=== PATIENT | male | born 1945 | race Caucasian/White ===

== ENCOUNTER → 2017-02-14 | Outpatient (CLI) | payer OTHER ==
[~2017-02-14] MED LIST: ASPCH81X PO; DOCU100C31 PO; GABA-113 PO; IBUP1CAP9 PO; MXZC25 PO; OMEP20TA PO; POLY335040 PO; ROSU5TAB PO; TRAM-453 PO
--- NOTE | 2017-02-14 15:32 | DIAGNOSTIC IMAGING REPORT ---
BONE SCAN WHOLE BODY CLINICAL HISTORY: Prostate carcinoma COMPARISON STUDY: None FINDINGS: The patient was injected with 27.1 mCi of technetium 99m MDP. Three-hour delayed whole body images were acquired. There are foci of increased activity shoulders wrists knees and feet and a degenerative/arthritic pattern. Foci of increased activity over the perineum are felt to relate to bladder and associated urinary contamination. There are no foci of increased activity viewed as suspicious for skeletal metastasis. IMPRESSION: No scintigraphic evidence of skeletal metastasis. Electronically signed by: Victorino Giang M.D. 02/14/2017 3:31 PM Dictated Date/Time: 02/14/2017 3:29 PM
== END | disposition home or self-care (01) ==
LOC: C.NUCL 11:30
PROVIDERS: ATTEND Specialist
DX: D07.5 Carcinoma in situ of prostate (principal)

== ENCOUNTER 2018-12-20 09:15 | Inpatient (IN) ==
--- NOTE | 2018-12-13 10:41 | Anesthesiology Consultation ---
Date of Service December 13, 2018 Assessment & Plan (1) Encounter for pre-operative examination: Patient seeing [facility] [place] 12/13 @ 1530. Chart Review Chart Review: Acceptable Risk for Surgery (pending cardiology office visit ) and Patient NOT seen in Pre Admission Testing History Surgery Operation Date: 12/20/18 11:10 Proposed Procedures p Navigational Bronchoscopy with ICG Marking, - Jean Paul Diego MD, FACS s Robotic Left Video Assisted Thoracoscopy with Left Lower Wedge Resection - Jean Paul Diego MD, FACS Height/Weight Height: 5 ft 9 in Weight: 102.058 kg Allergies Allergy/AdvReac Type Severity Reaction Status Date / Time Sulfa (Sulfonamide AdvReac Mild INCREASES Verified 12/13/18 15:27 Antibiotics) BODY TEMPERATURE Medications Home Medications Medication Instructions Recorded Confirmed Last Taken cholecalciferol (vitamin D3) 1,000 unit PO QAM 12/28/17 12/13/18 11/11/18 20:00 [Vitamin D3] docusate sodium 100 mg PO HS 12/28/17 12/13/18 Unknown multivitamin with minerals 1 cap PO BID 12/28/17 12/13/18 11/11/18 20:00 omega 8-nbd-cor-fish oil [Fish Oil] 2,000 mg PO QAM 12/28/17 12/13/18 11/11/18 20:00 acetaminophen [Tylenol Extra 1,000 mg PO Q8H PRN 09/04/18 12/13/18 11/10/18 Strength] vitamin B complex 1 tab PO QAM 09/04/18 12/13/18 11/11/18 20:00 vitamin N66-[id number] acid 1 tab PO QAM 09/04/18 12/13/18 11/11/18 20:00 Eliquis 5 mg PO BID 11/13/18 12/13/18 11/12/18 21:00 ranolazine [Ranexa] 500 mg PO QAM 11/13/18 12/13/18 11/12/18 09:00 ascorbic acid (vitamin C) See Rx Instructions .ROUTE .COMPLEX 12/13/18 12/13/18 Unknown biotin See Rx Instructions .ROUTE .COMPLEX 12/13/18 12/13/18 Unknown rosuvastatin 40 mg tablet 20 mg PO DAILY tab 12/13/18 12/13/18 Unknown Past Medical History Medical History High cholesterol Prostate cancer radiation and chemo Anxiety Bradycardia has had for a few years and follow with DR. Price from [facility] Depression Hearing deficit Hx pulmonary embolism 08/2018 and takes eliquis Metastatic bone cancer T3 AREA Osteoarthritis Stable angina On Ranexa. Per PCP 10/25/18, "CAD nonobstructive with angina and dyspnea." Seeing [facility] 12/13. Past Family History Family History Other No pertinent family history Past Surgical History Surgical History History of cardiac catheterization about 5 years ago and no stent History of colonoscopy History of right knee joint replacement Hx of prostatectomy and lymph nodes removed S/P bronchoscopy with biopsy (11/14/18) Dr. Diego 11-14-18 Past Anesthesia History EBUS 11/14/18 = MAC 3.0, ETT 8.0 grade view III, atraumatic. Smooth induction. Social History Smoking Status: Never smoker Do You Dip or Chew Tobacco: No Hx Alcohol Use: No Hx Substance Use: No substance use type: does not use Testing Laboratory Results 12/05/18 WBC: 6.15 H/H: 13.7/39.7 PLATELETS: 215 SODIUM: 143 POTASSIUM: 4.1 CHLORIDE: 109 CO2: 29 BUN: 18 CREATININE: 0.97 GLUCOSE: 84 Electrocardiogram Date: 09/05/18 Findings: + SB @ (49 with 1st degree AV block) Compared with EKG of 12/29/2017, minimal criteria for anterior infarct are no longer present. Chest X-Ray Date: 11/14/18 HISTORY: Postop. s/p EBUS IMPRESSION: 1. No pneumothorax. 2. Scattered linear densities within the mid to lower lung zones. This favors subsegmental atelectasis. Echocardiogram Date: 10/05/18 EF: 60-65% Normal LV size and systolic function. No regional wall motion normalities. Mild concentric LVH. Mild mitral regurgitation. Normal estimated RVSP, assuming a normal right atrial pressure (IVC not well-visualized). Other Testing PET CT fusion skull to thigh 11/13/18 FINDINGS: HEAD AND NECK: Right greater than left increased metabolic uptake noted about the parotid glands and submandibular glands, likely physiologic without correlate on the CT images. No hypermetabolic adenopathy. CHEST: There is a physiologic distribution of activity, with no hypermetabolic mediastinal, hilar or pulmonary foci. 5 mm solid nodule of the superior segment left lower lobe has decreased in size from 09/04/2018 where it measured 10 mm. There is no hypermetabolic activity noted within this nodule. Mild right infrahilar soft tissue prominence with proximal right lower lobe bronchial wall thickening redemonstrated without hypermetabolic activity, possibly on a postinflammatory basis. ABDOMEN AND PELVIS: There is a physiologic distribution of activity within the liver, spleen, adrenal glands, gastrointestinal and urinary tracts, with no hypermetabolic foci. MUSCULOSKELETAL SYSTEM AND EXTREMITIES: Sclerotic lesion of the T3 vertebral body extending into the right T3 pedicle is noted with only slightly increased metabolic activity, SUV max of 2.2. ADDITIONAL CT FINDINGS: Mild cardiomegaly. Coronary arterial calcifications are noted. No pneumothorax or pleural effusion. Liver, gallbladder, spleen, pancreas and adrenal glands appear unremarkable. No renal or ureteral calculi. Wall thickening of the urinary bladder with partial distention. Moderate right and large left fat filled inguinal hernias. Prior prostatectomy. Extensive calcified plaque of the abdominal aorta. Post operative changes from prior right inguinal and bilateral iliac chain dissection. Small hiatal hernia. No bowel obstruction or bowel wall thickening. Soft tissues are unremarkable. IMPRESSION: 1. 5 mm solid nodule of the superior segment left lower lobe has decreased in size from 09/04/2018 previously measuring 10 mm. No significant metabolic activity identified within this nodule. These findings are suggestive of a p robable benign etiology. Follow-up recommended. 2. No hypermetabolic pulmonary nodules or adenopathy identified. 3. Mild right infrahilar soft tissue prominence with right lower lobe bronchial wall thickening as described on CTA chest of same day again noted without hypermetabolic activity, possibly on a postinflammatory basis. 4. Sclerotic lesion at T3 demonstrates only slightly increased metabolic activity. No additional hypermetabolic bone lesions.
[~2018-12-20 09:15] MED LIST changes: -ASPCH81X PO; -DOCU100C31 PO; -GABA-113 PO; -IBUP1CAP9 PO; +LR 15ML/HR IV SCH; -MXZC25 PO; -OMEP20TA PO; -POLY335040 PO; -ROSU5TAB PO; -TRAM-453 PO
[2018-12-20] MEDS ORDERED: ATROPINE SULFATE 0.1 MG/ML 10ML SYR IV PRN (10:35)
[2018-12-20] MEDS ORDERED: fentaNYL citrate 100 MCG/2 ML VIAL IV PRN (10:35)
[2018-12-20] MEDS ORDERED: HYDROmorphone INJ 1 MG/ML SYRINGE IV PRN (10:35)
[2018-12-20] MEDS ORDERED: ONDANSETRON INJ 2 MG/ML 2 ML VIAL IV PRN ×2 (10:35→17:26)
[2018-12-20] MEDS ORDERED: ePHEDrine sulfate 50 MG/ML AMP IV PRN (10:35)
[2018-12-20] MEDS ORDERED: fentaNYL citrate 100 MCG/2 ML VIAL ONE ×2 (11:05→15:53)
[2018-12-20] MEDS ORDERED: MIDAZOLAM HCL 1 MG/ML 2ML VIAL ONE (11:05)
--- NOTE | 2018-12-20 11:38 | History & Physical Bridge Note ---
Date of Service December 20, 2018 History & Physical Bridge Note I have examined the patient, reviewed the History & Physical and in the interval since the performance of the History & Physical I have noted the following changes of clinical significance: no changes noted
[2018-12-20] MEDS ORDERED: SODIUM CHLORIDE 0.9% PF 50 ML VIAL ONE (11:45)
[2018-12-20] MEDS ORDERED: BUPIVACAINE 0.5 % 5 MG/1 ML MPF 30ML VIAL ONE (11:45)
[2018-12-20] MEDS ORDERED: BUPIVACAINE LIPOSOME 1.3% 266 MG/20 ML VIAL ONE (11:46)
[2018-12-20] MEDS ORDERED: CLINDAMYCIN PHOS 300 MG/2 ML VIAL ONE (12:45)
[2018-12-20] MEDS ORDERED: GLYCOPYRROLATE 0.2 MG/ML VIAL ONE ×2 (12:47→16:10)
[2018-12-20] MEDS ORDERED: NEOSTIGMINE METHYLSULFATE 5 MG/5 ML SYR ONE (12:47)
[2018-12-20] MEDS ORDERED: DEXAMETHASONE SOD INJ 4 MG/ML VIAL ONE (12:47)
[2018-12-20] MEDS ORDERED: PROPOFOL IV EMULSION 10 MG/ML 20 ML VIAL IV ONE ×2 (12:47→15:03)
[2018-12-20] MEDS ORDERED: ONDANSETRON INJ 2 MG/ML 2 ML VIAL ONE (12:47)
[2018-12-20] MEDS ORDERED: ROCURONIUM BROMIDE 10 MG/ML 5 ML VIAL ONE ×3 (12:48→13:30)
--- NOTE | 2018-12-20 13:21 | Fluoroscopy Report ---
FL chest 1V frontal CLINICAL HISTORY: 73 years-old Male presenting with ILSA BRONCH WITH ICG MARKING. TECHNIQUE: 1 fluoroscopic image(s) recorded as part of an intraoperative procedure. COMPARISON: CTA chest from 11/13/2018. FINDINGS/IMPRESSION: Bronchoscopy catheter extends to the periphery of the lung. Please see surgical report for further details. Fluoroscopy dosage (mGy): 4.22. Fluoroscopy time: 29.2 seconds. Number or time of high level fluoroscopy (HLF), digital spot, or digital subtraction images: 0. Electronically signed by: Suhail Curtis M.D. 12/20/2018 1:20 PM
[2018-12-20] MEDS ORDERED: ePHEDrine sulfate 50 MG/ML SYR ONE (13:30)
[2018-12-20] MEDS ORDERED: OXYCODONE HCL IR 5 MG TAB (IMMEDIATE RELEASE) PO PRN (15:10)
[2018-12-20] MEDS ORDERED: METOCLOPRAMIDE HCL INJ 5 MG/ML 2 ML VIAL IV ONE (15:20)
--- NOTE | 2018-12-20 15:35 | Anesthesiology Progress Note ---
Date of Service December 20, 2018 Anesthesia Post Procedure Vital Signs Vital Signs: Temp Pulse Resp BP Pulse Ox 12/20/18 10:09 36.6 C 55 L 20 159/81 H 99 Pain Intensity Other: Pain Intensity: 4 Transfer of Care Handoff Completed per policy Notes Mental Status: alert / awake / arousable and participated in evaluation Patient Amnestic to Procedure: Yes Nausea / Vomiting: adequately controlled Pain: adequately controlled Airway Patency, RR, SpO2: stable & adequate BP & HR: stable & adequate Hydration State: stable & adequate Anesthetic Complications: no major complications apparent and Pt Satisfied with anesthetic care
[2018-12-20] MEDS: ACETAMINOPHEN 1,000 MG/100 ML VIAL IV SCH ×2 (15:54→23:24)
--- NOTE | 2018-12-20 15:59 | XRay Report ---
XR chest 1V portable HISTORY: 73 years-old Male LLL Wedge status post surgery of the left lung COMPARISON: Chest radiograph 11/14/2018 TECHNIQUE: Portable AP view of the chest FINDINGS: Cardiac silhouette is enlarged, unchanged. Interval postoperative changes of the left lung with surgi trent suture material seen about the left perihilar distribution. A left-sided chest tube is noted with distal tip terminating adjacent to the left hilum. Small left apical pneumothorax with pleural separ ation of 1.8 cm. Persistent bibasilar right greater than left opacities are noted without large pleur al effusion or overt pulmonary edema. Subcutaneous emphysema about the lower lateral left chest wall. Degenerative changes of the shoulders and spine. IMPRESSION: 1. Postoperative changes of the left lung with small left apical pneumothorax. 2. Persistent right greater than left bibasilar opacities suggestive of probable atelectasis. 3. Cardiomegaly without overt pulmonary edema. The above report was generated using voice recognition software. It may contain grammatical, syntax o r spelling errors. Electronically signed by: Jacinto Estevez M.D. 12/20/2018 3:57 PM
[2018-12-20] MEDS ORDERED: GLYCOPYRROLATE 0.2 MG/ML VIAL IV STA (16:09)
--- NOTE | 2018-12-20 16:26 | Anesthesiology Progress Note ---
Date of Service December 20, 2018 Physical Exam Vital Signs: Last Vital Signs Temp 36.0 C L 12/20/18 15:22 Pulse 70 12/20/18 15:50 Resp 23 12/20/18 15:50 BP 107/64 12/20/18 15:50 Pulse Ox 90 12/20/18 15:50 Physical Exam: The patient developed and 2nd degree AV block,Mobitz 2 in the PACU. Cain Ramirez was notified, the transfer orders were changed to a [place] bed, an EKG was ordered and he was given 0.4 mg of glycopyrrolate. Mr. Ramirez ordered a cardiology consult. Results & Data Medications Administered Lactated Ringer's (Lr) 1,000 mls @ 15 mls/hr IV .Q24H KAYLA Stop: 12/21/18 05:59 Last Infusion: 12/20/18 12:12 Dose: 0 mls/hr Documented by: [id number] Admin: 12/20/18 10:46 Dose: 15 mls/hr Documented by: [id number] Acetaminophen (Ofirmev) 1,000 mg in 100 mls @ 400 mls/hr IV Q8H KAYLA Stop: 01/19/19 15:14 Last Admin: 12/20/18 15:54 Dose: 400 mls/hr Documented by: [id number]
--- NOTE | 2018-12-20 17:04 | Cardiology Progress Note ---
Date of Service December 20, 2018 Assessment & Plan (1) Sinus node dysfunction: He has a history of sinus bradycardia although we have not done of a lot of testing in our office as his evaluation has been elsewhere in the past. I suspect what we are seeing here is his no sinus node dysfunction. Agree with keeping him on the monitor and observing for significant bradycardia. At the moment I would not do anything further but I would avoid negative chronotrops. (2) CAD (coronary artery disease): He may have small vessel disease, he has not been shown to have significant large vessel disease with catheterizations in the past and recent stress testing. I would however continue Ranexa and statin therapy. (3) Anticoagulant long-term use: He was on Eliquis as an outpatient, that is for pulmonary emboli. As far as I know he does not have atrial fibrillation. I would restart it when safe. Subjective He is awake in the recovery room, he is feeling well and not having much discomfort. No palpitations. Physical Exam Physical Exam: Constitutional: Alert, cooperative and in no distress. Pulmonary: Clear to auscultation bilaterally. Cardiac: Regular rhythm with no murmur, gallop or rub. Abdomen: Soft, nontender with normal bowel sounds. Extremities: No edema. Skin: No rash, ecchymoses or petechiae. Results & Data Vital Signs (Past 12 Hours) Vital Signs Temp Pulse Pulse Resp BP Pulse Ox 12/20/18 16:55 77 14 112/55 L 93 12/20/18 16:40 82 15 128/66 93 12/20/18 16:30 36.3 C L 90 13 112/66 93 12/20/18 16:20 101 H 16 112/64 93 12/20/18 16:10 67 12 124/57 L 94 12/20/18 16:00 76 20 120/80 93 12/20/18 15:50 70 23 107/64 90 12/20/18 15:40 71 22 114/69 97 12/20/18 15:30 75 13 98/58 L 97 12/20/18 15:22 36.0 C L 81 21 124/53 L 94 12/20/18 10:09 36.6 C 55 L 20 159/81 H 99 Diagnostic Findings Electrocardiography: Sinus rhythm, premature atrial beats, no significant abnormality. Telemetry: Sinus rhythm with periods of sudden sinus bradycardia consistent with sinus node dysfunction. No clear AV block documented. PG Care Time/CCT Total # of Minutes Spent Total Time Spent with Patient: Total time spent is greater than 50% in coordination of care (as documented) at patient's floor/unit and/or counseling patient:
[2018-12-20] MEDS ORDERED: MoRPHine SULFATE 2 MG/ML CARP IV PRN (17:26)
[2018-12-20] MEDS: D5W AND 1/2NSS 1,000 ML IV SCH (17:42)
[2018-12-20] MEDS: DOCUSATE SODIUM 100 MG CAP PO SCH (20:42)
--- NOTE | 2018-12-20 22:32 | Operative Report ---
DATE OF OPERATION: 12/20/2018 PREOPERATIVE DIAGNOSES: 1. A nodule in the superior segment, left lower lobe. 2. History of metastatic prostate carcinoma. POSTOPERATIVE DIAGNOSIS: Apparent nodule of left lower lobe, primary unknown. PROCEDURE: 1. Electromagnetic navigational bronchoscopy with marking of lesion with indocyanine green dye. 2. Robot-assisted left thoracoscopy with wedge resection of mass. SURGEON: Jean Paul Diego MD. SLASH TRIMMER: REGINE Felder (Mr. Oh was present for the entire case and was at the patient's bedside while I was at the console. He stayed for the entirety and was the virtual assistant for advertisers. ANESTHESIA: General anesthesia, endotracheal intubation using double lumen tube. SPECIFICS OF PROCEDURE AND FINDINGS: Issac Mercer is a 73-year-old male with apparent metastatic prostate carcinoma who is followed by Dr. Jude Whitman. Dr. Whitman presented this case in one of our conferences that the patient had a nodule in the left lower lobe in the superior segment. It had enlarged to about 10 mm and after much discussion, we felt that it would be worthwhile to wedge this out. He got a shot of Lupron for his prostate cancer and the nodule got a bit smaller. After much discussion, we elected to proceed. I had a very lengthy discussion with the patient and his significant other in the office. On 12/20/2018, the patient underwent an uncomplicated electromagnetic navigational bronchoscopy. I then injected the indocyanine green dye. We then turned the patient and the dye was not very helpful, but we did a few wedges of the superior segment of the lower lobe and frozen section showed this to be a small foci of carcinoma with mucinous features. The patient tolerated the procedure well, had no air leak and negligible blood loss. DESCRIPTION OF PROCEDURE: The patient was brought to the operating room, laid in supine position. General anesthesia was induced and endotracheal intubation was performed with a single lumen tube. After appropriate timeout had been called and prophylactic antibiotics given, the fiberoptic bronchoscope was placed and I saw no endobronchial lesions going all the way down to the tertiary bronchi bilaterally Coming back to the trachea, we then registered all the airways on the superDimension navigational bronchoscopy system. I then went down into the left lower lobe and was able to get out to this lesion. We really did not see much with the endobronchial ultrasound probe. This was a small mass and I was not surprised. I injected the indocyanine green dye and I was a bit surprised as there was difficulty in injecting it. I could inject it, but it did not appear that the dye was injecting the way it should have. At any rate, we then removed this and we had no evidence of bleeding. We then removed our fiberoptic bronchoscope. The patient tolerated this well and was ready for his surgery. The patient had double lumen tube placed and he was placed in a right lateral decubitus position. Left chest prepped and draped in the usual sterile fashion. We called another time-out and then I placed an 8 mm port close to the midline at about the 8th interspace. I inserted the scope and we could see there were no adhesions. Carbon dioxide was then insufflated. Another 8 mm port was placed anteriorly and laterally and then a 12 mm assistance port was placed above the costal margin anteriorly. I then went in and I did not see the indocyanine green dye as I had hoped. As stated, I think there may have been a problem with the injection. For this reason, I did a generous biopsy of the edge of the fissure of the lower lobe going up to the superior segment. The first specimen did not have a mass, but I did a second and it did have a nodule and frozen section showed this to be an adenocarcinoma. A 266 mg of Exparel in 20 mL of solution was mixed with 30 mL of 0.5% bupivacaine and 250 mL of normal saline. I then injected each of the 4 port sites before making them and we then did a block from the 2nd rib to the 12th rib. This was done under thoracoscopic guidance. A 24-[place] chest tube was placed in the middle port and directed upward. It was held in place with heavy silk suture. A 4-0 Monocryl was used to close all the incisions and the assistance port had a 0 Vicryl to close the muscle layers first. He tolerated it well, was extubated in the room. He really did not have an air leak. I attest to the content of the Intraoperative Record and any orders documented therein. Any exception s are noted below.
[2018-12-21] MEDS: D5W AND 1/2NSS 1,000 ML IV SCH (04:10)
[2018-12-21 06:22] LABS: Hematocrit (blood only) 35.1 % (42-52); Mean Corpuscular Hemoglobin 31.9 pg (25-34); Mean Corpuscular Hgb Conc 34.2 g/dL (32-36); Mean Corpuscular Volume 93.4 fL (80-100); Mean Platelet Volume 9.3 fL (7.4-10.4); Platelet Count 188 K/uL (130-400); RDW Coefficient of Variation 13.3 % (11.5-14.5); RDW Standard Deviation 44.9 fL (36.4-46.3); Red Blood Count 3.76 M/uL (4.7-6.1); White Blood Count 7.38 K/uL (4.8-10.8)
[2018-12-21 06:32] LABS: Partial Thromboplastin Ratio 0.8; Partial Thromboplastin Time 22.5 Seconds (21.0-31.0); Prothrombin Time 10.5 Seconds (9.0-12.0)
[2018-12-21 06:52] LABS: Creatinine Clr Calc Pharmacy 83.4 ml/min; Est GFR (African American) 95.3; Est GFR (Non-African American) 82.2
--- NOTE | 2018-12-21 07:05 | XRay Report ---
XR chest 1V portable CLINICAL HISTORY: LLL Wedge postoperative COMPARISON STUDY: 12/20/2018 FINDINGS: Minimal residual left apical pneumothorax. This is improved from the prior study. Left basilar chest tube is unaltered. Infiltrative/atelectatic change right base is unaltered. IMPRESSION: Stable to slightly improved exam. Minimal, if any residual left apical pneumothorax. The above report was generated using voice recognition software. It may contain grammatical, syntax or spelling errors. Electronically signed by: Armando Stewart M.D. 12/21/2018 7:04 AM
--- NOTE | 2018-12-21 07:54 | XRay Report ---
XR chest 1V portable CLINICAL HISTORY: tube removal tube position COMPARISON STUDY: 12/21/2018 FINDINGS: Interval removal left-sided chest tube. Parenchymal densities right lung base are stable. No evidence for pneumothorax. IMPRESSION: Interval removal left-sided chest tube. No significant postprocedural pneumothorax. The above report was generated using voice recognition software. It may contain grammatical, syntax or spelling errors. Electronically signed by: Armando Stewart M.D. 12/21/2018 7:52 AM
[2018-12-21] MEDS ORDERED: ACETAMINOPHEN 325 MG TAB PO SCH (08:00)
[2018-12-21] MEDS: DOCUSATE SODIUM 100 MG CAP PO SCH (08:08)
--- NOTE | 2018-12-21 08:27 | Anesthesiology Progress Note ---
Date of Service December 21, 2018 Anesthesia Post Procedure Vital Signs Vital Signs: Temp Pulse Pulse Pulse Resp BP BP 12/21/18 07:46 36.8 C 71 20 114/61 12/21/18 04:14 36.6 C 72 18 119/56 L 12/21/18 02:17 36.8 C 62 16 101/54 L 12/21/18 00:26 36.7 C 69 16 109/52 L 12/20/18 23:15 36.6 C 69 18 112/55 L 12/20/18 22:26 36.6 C 74 18 103/49 L 12/20/18 21:30 12/20/18 20:26 36.6 C 92 H 18 115/61 12/20/18 19:56 36.5 C 12/20/18 19:50 91 H 12/20/18 19:17 35.2 C L 88 16 120/67 12/20/18 18:26 36.4 C L 85 18 91/55 L 12/20/18 18:00 35.7 C L 12/20/18 17:15 35.7 C L 86 18 123/68 12/20/18 17:10 84 15 120/61 12/20/18 16:55 77 14 112/55 L 12/20/18 16:40 82 15 128/66 12/20/18 16:30 36.3 C L 90 13 112/66 12/20/18 16:20 101 H 16 112/64 12/20/18 16:10 67 12 124/57 L 12/20/18 16:00 76 20 120/80 12/20/18 15:50 70 23 107/64 12/20/18 15:40 71 22 114/69 12/20/18 15:30 75 13 98/58 L 12/20/18 15:22 36.0 C L 81 21 124/53 L 12/20/18 10:09 36.6 C 55 L 20 159/81 H Pulse Ox 12/21/18 07:46 94 12/21/18 04:14 93 12/21/18 02:17 92 12/21/18 00:26 93 12/20/18 23:15 92 12/20/18 22:26 92 12/20/18 21:30 96 12/20/18 20:26 92 12/20/18 19:56 12/20/18 19:50 12/20/18 19:17 93 12/20/18 18:26 95 12/20/18 18:00 12/20/18 17:15 98 12/20/18 17:10 93 12/20/18 16:55 93 12/20/18 16:40 93 12/20/18 16:30 93 12/20/18 16:20 93 12/20/18 16:10 94 12/20/18 16:00 93 12/20/18 15:50 90 12/20/18 15:40 97 12/20/18 15:30 97 12/20/18 15:22 94 12/20/18 10:09 99 Pain Intensity Other: Pain Intensity: 4 Left Chest: Pain Intensity: 3 Notes Mental Status: alert / awake / arousable and participated in evaluation Nausea / Vomiting: adequately controlled Pain: adequately controlled Airway Patency, RR, SpO2: stable & adequate BP & HR: stable & adequate Hydration State: stable & adequate
[2018-12-21] MEDS: ACETAMINOPHEN 1,000 MG/100 ML VIAL IV SCH (08:43)
[2018-12-21] MEDS ORDERED: ENOXAPARIN INJ 40 MG/0.4 ML SYR SQ SCH (09:00)
[2018-12-21] MEDS ORDERED: RANOLAZINE 500 MG ER TAB PO SCH (09:00)
[2018-12-21] MEDS ORDERED: ROSUVASTATIN CALCIUM 20 MG TAB PO SCH (09:00)
--- NOTE | 2018-12-22 01:14 | Discharge Summary ---
ADMISSION DIAGNOSIS: Left lung nodule. DISCHARGE DIAGNOSIS: Left lung nodule. HOSPITAL COURSE: This is a very pleasant 73-year-old male who was seen and evaluated by Dr. Diego secondary to a left lower lobe superior segment lung nodule. Because the patient had a history of metastatic prostate cancer, wedge resection of this nodule was felt to be indicated. On date of admission, Dr. Diego took the patient to the operating room. He performed an electromagnetic navigational bronchoscopy with marking of the lesion with indocyanine dye. He then performed a robotic assisted left video-assisted thoracoscopy with a wedge resection of this lung mass. Final pathology was pending at the time of this dictation. During patient's postoperative course, he did have episodes of what appeared to be a Mobitz type 2 second-degree AV block in the recovery room. Anesthesia administered glycopyrrolate which helped improve his heart rhythm. Cardiology consultation was obtained and as the patient was not on any AV rohit blocking agents or negative chronotropes, they felt observation on telemetry was all that was needed. Following his admission, he did not have any further episodes of this arrhythmia. On postop day #1, his chest tube was discontinued and a post-pull chest x-ray did not reveal significant pneumothorax and the patient was deemed stable for discharge home, which was postoperative day #1. No changes were made to the patient's home medicine regimen and he was provided with a prescription for Ultram for pain. The patient was given written and verbal instructions and he was told he could remove his dressings in 3 days and shower thereafter, however, not take any tub baths. He was told not to drive until cleared by Dr. Diego. Dr. Diego's office will call him for a 1-week appointment. The patient was told get a chest x-ray 1 hour prior to this appointment. He was also instructed to call the office should any concerns arise.
== END 2018-12-21 10:30 | disposition home or self-care (01) | DRG 168 ==
LOC: ASU 09:15 → 2E 15:12

== ENCOUNTER 2019-02-07 06:10 | Inpatient (IN) ==
--- NOTE | 2019-02-06 08:53 | Anesthesiology Consultation ---
Date of Service February 06, 2019 Assessment & Plan (1) Encounter for pre-operative examination: Chart Review Chart Review: Acceptable Risk for Surgery History Surgery Operation Date: 02/07/19 07:30 Proposed Procedures p Left Robotic Video-Assisted Thoracoscopy with Left Lower Lobectomy, and Mediastinal Lymphadenectomy - Jean Paul Diego MD, FACS Height/Weight Height: 5 ft 9 in Weight: 102.058 kg Allergies Allergy/AdvReac Type Severity Reaction Status Date / Time Sulfa (Sulfonamide AdvReac Mild INCREASES Verified 02/01/19 13:14 Antibiotics) BODY TEMPERATURE Medications Home Medications Medication Instructions Recorded Confirmed Last Taken cholecalciferol (vitamin D3) 1,000 unit PO QAM 12/28/17 02/01/19 12/15/18 21:00 [Vitamin D3] docusate sodium 100 mg PO HS 12/28/17 02/01/19 Unknown multivitamin with minerals 1 cap PO DAILY 12/28/17 02/01/19 12/15/18 21:00 omega 3-bgs-fqi-fish oil [Fish Oil] 2,000 mg PO QAM 12/28/17 02/01/19 12/15/18 21:00 acetaminophen [Tylenol Extra 1,000 mg PO Q8H PRN 09/04/18 02/01/19 11/10/18 Strength] vitamin B complex 1 tab PO QAM 09/04/18 02/01/19 12/15/18 21:00 vitamin J29-suiqj acid 1 tab PO QAM 09/04/18 02/01/19 12/15/18 21:00 Eliquis 5 mg PO BID 11/13/18 02/01/19 12/15/18 21:00 ranolazine [Ranexa] 500 mg PO QAM 11/13/18 02/01/19 12/15/18 12:00 rosuvastatin 40 mg tablet 20 mg PO DAILY tab 12/13/18 02/01/19 Unknown tramadol [Ultram] 50 mg PO Q4H PRN #18 tab 12/21/18 02/01/19 Unknown gabapentin [Neurontin] 100 mg PO TID PRN 02/01/19 02/01/19 Unknown Past Medical History Medical History High cholesterol Prostate cancer radiation and chemo Hx pulmonary embolism (Resolved) 08/2018 and takes eliquis Anxiety Bradycardia has had for a few years and follow with DR. Price from [place] and [facility] Depression Hearing deficit Metastatic bone cancer T3 AREA Osteoarthritis Primary adenocarcinoma of lower lobe of left lung Stable angina On Ranexa. Per PCP 10/25/18, "CAD nonobstructive with angina and dyspnea." Seeing [facility] 12/13. Past Family History Family History Other No pertinent family history Past Surgical History Surgical History History of cardiac catheterization about 5 years ago and no stent History of colonoscopy History of lung biopsy (12/20/18) Wedge Resection LLL Dr. Diego History of lung surgery Robotic Left Video Assisted Thoracoscopy with left lower lobe wedge resection History of right knee joint replacement Hx of prostatectomy and lymph nodes removed S/P bronchoscopy with biopsy (11/14/18) Dr. Diego 11-14-18 Social History Smoking Status: Never smoker Do You Dip or Chew Tobacco: No Hx Alcohol Use: No Hx Substance Use: No substance use type: does not use Testing Laboratory Results Laboratory Tests 12/21/18 02/05/19 02/05/19 05:51 14:20 15:03 WBC 4.89 Hgb 13.1 L Hct 39.7 L Plt Count 218 PT 10.5 INR 1.0 APTT 22.5 Potassium 3.9 Creatinine 0.73 Electrocardiogram Date: 12/20/18 Findings: + NSR @ (90 1st degree AV block, prolonged QT, PAC's) and + NSST changes Chest X-Ray Date: 12/26/18 Findings: + atelectasis (likely mild) and + other (no pneumothorax (was a post- op CXR from prior VAT)) Stress Test Date: 12/14/18 Type: exercise (stress echo) Findings: + WNL Resting LV Function: normal Resting RWMA: + none Valvular Disease: no significant valvular disease
[2019-02-07] MEDS ORDERED: NEOSTIGMINE METHYLSULFATE 5 MG/5 ML SYR ONE (06:51)
[2019-02-07] MEDS ORDERED: GLYCOPYRROLATE 0.2 MG/ML VIAL ONE (06:51)
[2019-02-07] MEDS ORDERED: LIDOCAINE HCL 2% 2 ML VIAL/AMP(20MG/ML) INFIL ONE (06:51)
[2019-02-07] MEDS ORDERED: PHENYLEPHRINE 100MCG/ML 5ML SYR ONE (06:51)
[2019-02-07] MEDS ORDERED: ONDANSETRON INJ 2 MG/ML 2 ML VIAL ONE (06:51)
[2019-02-07] MEDS ORDERED: DEXAMETHASONE SOD INJ 4 MG/ML VIAL ONE (06:51)
[2019-02-07] MEDS ORDERED: ePHEDrine sulfate 50 MG/ML SYR ONE (06:51)
[2019-02-07] MEDS ORDERED: MIDAZOLAM HCL 1 MG/ML 2ML VIAL ONE (06:52)
[2019-02-07] MEDS ORDERED: fentaNYL citrate 100 MCG/2 ML VIAL ONE (06:52)
[2019-02-07] MEDS ORDERED: PROPOFOL IV EMULSION 10 MG/ML 20 ML VIAL IV ONE (06:52)
[2019-02-07] MEDS ORDERED: ROCURONIUM BROMIDE 10 MG/ML 5 ML VIAL ONE ×5 (06:52→11:20)
[2019-02-07] MEDS ORDERED: SODIUM CHLORIDE 0.9% PF 50 ML VIAL ONE (07:10)
[2019-02-07] MEDS ORDERED: BUPIVACAINE 0.5 % 5 MG/1 ML MPF 30ML VIAL ONE (07:10)
--- NOTE | 2019-02-07 07:10 | History & Physical Bridge Note ---
Date of Service February 07, 2019 History & Physical Bridge Note I have examined the patient, reviewed the History & Physical and in the interval since the performance of the History & Physical I have noted the following changes of clinical significance: no changes noted
[2019-02-07] MEDS ORDERED: BUPIVACAINE LIPOSOME 1.3% 266 MG/20 ML VIAL ONE (07:11)
[2019-02-07] MEDS ORDERED: fentaNYL citrate 100 MCG/2 ML VIAL IV PRN (07:26)
[2019-02-07] MEDS ORDERED: ePHEDrine sulfate 50 MG/ML AMP IV PRN (07:26)
[2019-02-07] MEDS ORDERED: METOCLOPRAMIDE HCL INJ 5 MG/ML 2 ML VIAL IV PRN (07:26)
[2019-02-07] MEDS ORDERED: HYDROmorphone INJ 2 MG/ML SYR/VIAL IV PRN (07:26)
[2019-02-07] MEDS ORDERED: ATROPINE SULFATE 0.1 MG/ML 10ML SYR IV PRN (07:26)
[2019-02-07] MEDS ORDERED: PROMETHAZINE HCL 12.5 MG in SODIUM CHLORIDE 0.9% 50 ML IV PRN (07:26)
[2019-02-07] MEDS ORDERED: ONDANSETRON INJ 2 MG/ML 2 ML VIAL IV PRN ×2 (07:26→14:36)
[2019-02-07] MEDS ORDERED: DEXAMETHASONE SOD INJ 4 MG/ML VIAL IV PRN (07:26)
[2019-02-07] MEDS ORDERED: CEFAZOLIN 2000MG 2,000 MG/15 ML SYR IV ONE (08:47)
[2019-02-07] MEDS ORDERED: CEFAZOLIN 250 MG/ML 1 GM VIAL ONE (10:47)
[2019-02-07] MEDS ORDERED: PHENYLEPHRINE HCL 10 MG/ML VIAL ONE ×2 (10:47)
--- NOTE | 2019-02-07 12:16 | Post Operative Brief Note ---
PG Immediate Post Op with CF Date of Surgery February 07, 2019 Pre & Post Diagnosis Operation Date: 02/07/19 07:30 Pre-Op Diagnosis: Adenocarcinoma LLL Post-Op Diagnosis: Same I identified the patient and participated in the time-out.: Yes Procedure Operation Date: 02/07/19 07:30 Actual Procedures p Left Robotic Video-Assisted Thoracoscopy with Completion of Left Lower Lobectomy, and Mediastinal Lymphadenectomy(Left) - Jean Paul Diego MD, FACS Surgeon Jean Paul Diego MD, FACS Surgical Technology Instructor Regan WEINER Estimated Blood Loss 75 Findings Consistent with Post-Op Diagnosis Specimens Specimen Description: Fresh Specimen A. L9 Lymph nodes x2 B. L8 Lymph nodes x2 C. L10 Lymph node x3 D. Level 7 Lymph nodes x3 E. L11 Lymph nodes x5 F. L12 Lymph nodes x7 G. Level 5 lymph nodes x2 H. Level 6 lymph nodes I. Wedge of left lower lobe J. Wedge of left upper lobe Frozen Section : 1. Left lower lobe Drains Chest Tube (thal) and Maradiaga Catheter (inserted by Dr. Diego)
--- NOTE | 2019-02-07 12:40 | XRay Report ---
XR chest 1V portable CLINICAL HISTORY: Postop left lower lobectomy COMPARISON STUDY: 12/26/2018 FINDINGS: The heart is mildly enlarged. Postsurgical changes are present on the left. There is a left -sided chest tube. There is a left apical pneumothorax with pleural separation of 22 mm. There are tr verona pleural effusions. There are increased interstitial markings on the right, possibly secondary to mild fluid overload. Right mid lower lung zone atelectatic changes are also evident.[ IMPRESSION: 1. Possible mild right lung pulmonary vascular congestion 2. Postsurgical changes on the left. Left-sided chest tube with its tip projected over the left fourt h rib. 22 mm left apical pneumothorax Electronically signed by: Victorino Giang M.D. 02/07/2019 12:39 PM
--- NOTE | 2019-02-07 13:19 | Operative Report ---
DATE OF OPERATION: 02/07/2019 PREOPERATIVE DIAGNOSIS: Adenocarcinoma of left lower lobe, status post wedge resection. POSTOPERATIVE DIAGNOSIS: Adenocarcinoma of left lower lobe, status post wedge resection. PROCEDURE: 1. Robot-assisted thoracoscopic completion left lower lobectomy. 2. Mediastinal lymphadenectomy. SURGEON: Jean Paul Diego MD. MINING DETAIL DRAFTSPERSON: REGINE Felder ( Adriano was present for the entire case and was instrumental at the patient's bedside while I was at the console. He also closed the skin incisions at the conclusion). ANESTHESIA: General anesthesia, endotracheal intubation using double lumen tube. SPECIFICS OF PROCEDURE AND FINDINGS: Issac Mercer is a 73-year-old male who has a history of prostate carcinoma. Despite the fact that it has been metastatic to his bone in the past, Dr. Jude Whitman felt that the disease was limited and rather indolent. A scan showed a new nodule in his left lower lobe. We were thinking this may be metastatic disease, so I wedged this out and indeed it was an adenocarcinoma, but could not tell it was from his prostate on frozen section. Immunohistochemical stain showed this to be a lung primary. The rest of his workup was negative, so after presenting him at our multidisciplinary cancer conference, we elected to proceed with a completion lobectomy. On 02/07/2019, the patient underwent an uncomplicated robot-assisted thoracoscopic completion left lower lobectomy and mediastinal lymphadenectomy. He did have scarring between the lobes where we had stapled the left lower lobe for the wedge resection. He also had some adhesions, which were taken down very easily. I wedged out a small portion of the left upper lobe to control an air leak at the end. He tolerated it well, was extubated in the room with negligible blood loss and really no air leak. DESCRIPTION OF PROCEDURE: The patient was brought to the operating room, laid in supine position. General anesthesia induced and endotracheal intubation was performed. The patient was turned in right lateral decubitus position. After appropriate timeout had been called and prophylactic antibiotics given, an incision was made in his left chest at about the eighth interspace. Upon going in, there were some adhesions, but we were easily able to get into the chest. I put an 8 mm port medially at the same interspace and used a cautery to take down the adhesions. I then put another 8 mm port posteriorly in the same interspace and then a 5 mm port closer to the spine, an interspace below. I then placed a 15 mm assistance port anteriorly just above the diaphragm between the anterior port and the camera port. We also changed out the 5 mm port, which we had placed in to open, with a 12 mm camera port. The robot was then docked. Immediately upon entering, we first thing we did was to do an intercostal block using Exparel. 266 mg of Exparel in 20 mL of solution was mixed with 30 mL of 0.5% bupivacaine and 250 mL of normal saline. These were used to inject each of the port sites before we made our incision and were also used to perform a block from the 2nd to the 12th rib by going into the interspace and filling it with this under thoracoscopic guidance. We then went ahead and took down the inferior pulmonary ligament. I biopsied level 9, level 8 node and cleaned off the vein posteriorly and inferiorly. Coming on up, I then went down and biopsied the level 7 nodes as well as level 10 nodes and cleaned off the bronchus, the proximal pulmonary artery as well as the veins. I then went anteriorly and freed up the pleura and dissected out the vein anteriorly as well as took this dissection down around the veins and removed several lymph nodes including some level 11 nodes, also took down level 5 and 6 with care taken to avoid injury to the recurrent laryngeal, vagus nerve and the phrenic nerve. These were all sent for permanent section. Attention was then turned towards the artery posteriorly and I freed this up; however, where we had performed our wedge resection was quite adherent and there was inflammatory response between the upper and lower lobe posteriorly. I spent quite a bit of time freeing this up from posterior. I then dove into the fissure and eventually came down to the artery. I was able to dissect this out using the [place] bipolar dissector and was able to get down to the vein and then we were actually able to completely free up the fissure without using a stapler. It should be noted there were adhesions, which were taken down with cautery and this was involving the upper lobe and the lower lobe superior segment posteriorly. I was then able to identify the superior segmental artery to the superior segment of the left lower lobe and I divided this with Endo-PATTIE stapler. While coming back, I dissected out the artery more medially and identified the lingual artery. I removed multiple lymph nodes. I was able to see the bronchus and then I completed the fissure anteriorly using Endo-PATTIE staplers. I then divided the artery to the left lower lobe below the takeoff of the lingula. I then identified the bronchus quite nicely and divided the bronchus below the takeoff of the lingular bronchus. We then took the inferior pulmonary vein. It should be noted that the lingular vein came off of the inferior pulmonary vein, which was a little unusual. I really did not see much in the way of bleeding. We did find an air leak in the apex posteriorly of the superior portion of the upper lobe, which had been adherent to the pleura, which were taken down early. I then utilized an endoGIA stapler and wedged this out. We saw really not much in the way of an air leak. A 24-Bulgarian chest tube was directed towards the apex and sutured in place with heavy silk suture. We were able to deliver the lobe out of the assistance port by extending it a couple of centimeters. This was brought out with an Endobag. We then closed this incision with 0 Vicryl for the muscle layers as well as the camera port also. We then used 4-0 Monocryl in running subcuticular fashion to approximate the wound edges of all the wounds. He tolerated it well. I attest to the content of the Intraoperative Record and any orders documented therein. Any exceptions are noted below. CHECOD
--- NOTE | 2019-02-07 13:38 | Anesthesiology Progress Note ---
Date of Service February 07, 2019 Anesthesia Post Procedure Vital Signs Vital Signs: Temp Pulse Pulse Resp BP BP Pulse Ox 02/07/19 13:20 70 18 104/62 97 02/07/19 13:10 62 20 98/55 L 96 02/07/19 13:00 77 20 101/56 L 98 02/07/19 12:50 78 23 110/67 98 02/07/19 12:40 76 24 107/60 94 02/07/19 12:33 36.1 C L 98 H 16 72/54 L 97 02/07/19 06:37 36.5 C 54 L 18 135/72 96 Pain Intensity Lower Back: Pain Intensity: 3 Generalized: Pain Intensity: 10 Transfer of Care Handoff Completed per policy Notes Mental Status: alert / awake / arousable and participated in evaluation Patient Amnestic to Procedure: Yes Nausea / Vomiting: adequately controlled Pain: adequately controlled Airway Patency, RR, SpO2: stable & adequate BP & HR: stable & adequate Hydration State: stable & adequate Anesthetic Complications: no major complications apparent
[2019-02-07] MEDS ORDERED: MoRPHine SULFATE 2 MG/ML CARP IV PRN (14:36)
[2019-02-07] MEDS ORDERED: METOCLOPRAMIDE HCL INJ 5 MG/ML 2 ML VIAL IV ONE (14:36)
[2019-02-07] MEDS: METOCLOPRAMIDE HCL INJ 5 MG/ML 2 ML VIAL IV SCH ×2 (14:51→22:46)
[2019-02-07] MEDS: D5W AND 1/2NSS 1,000 ML IV SCH (15:09)
[2019-02-07] MEDS: ACETAMINOPHEN 1,000 MG/100 ML VIAL IV SCH ×2 (15:14→21:02)
[2019-02-07] MEDS: DOCUSATE SODIUM 100 MG CAP PO SCH (20:48)
[2019-02-08] MEDS: D5W AND 1/2NSS 1,000 ML IV SCH (00:44)
[2019-02-08] MEDS: OXYCODONE HCL IR 5 MG TAB (IMMEDIATE RELEASE) PO PRN ×2 (04:48→20:54)
[2019-02-08] MEDS: ACETAMINOPHEN 1,000 MG/100 ML VIAL IV SCH (05:59)
[2019-02-08] MEDS: METOCLOPRAMIDE HCL INJ 5 MG/ML 2 ML VIAL IV SCH (06:00)
[2019-02-08 06:22] LABS: Eosinophils # (auto) 0.02 K/uL (0-0.5); Eosinophils % (auto) 0.2 %; Hematocrit (blood only) 34.7 % (42-52); Hemoglobin 11.8 g/dL (14.0-18.0); Immature Granulocytes # (auto) 0.01 K/uL (0.00-0.02); Immature Granulocytes % (auto) 0.1 %; Lymphocytes # (auto) 0.73 K/uL (1.2-3.4); Lymphocytes % (auto) 8.9 %; Mean Corpuscular Hemoglobin 32.2 pg (25-34); Mean Corpuscular Volume 94.6 fL (80-100); Mean Platelet Volume 8.9 fL (7.4-10.4); Monocytes # (auto) 0.64 K/uL (0.11-0.59); Monocytes % (auto) 7.8 %; Neutrophils # (auto) 6.81 K/uL (1.4-6.5); Platelet Count 182 K/uL (130-400); RDW Coefficient of Variation 13.7 % (11.5-14.5); RDW Standard Deviation 47.6 fL (36.4-46.3); Red Blood Count 3.67 M/uL (4.7-6.1); White Blood Count 8.21 K/uL (4.8-10.8)
[2019-02-08 06:48] LABS: Calcium 7.5 mg/dl (8.5-10.1); Creatinine Clr Calc Pharmacy 104.7 ml/min; Est GFR (African American) 106.1; Est GFR (Non-African American) 91.5; Potassium 3.9 mmol/L (3.5-5.1)
--- NOTE | 2019-02-08 07:27 | XRay Report ---
XR chest 1V portable CLINICAL HISTORY: LLL COMPARISON STUDY: Chest radiograph February 07, 2019. FINDINGS: Left chest tube is in place. There has been slight partial interval withdrawal of the chest . Left pneumothorax is no longer identified. Postoperative findings within the left lung are noted. L eft basilar opacity with a small left pleural effusion persist. Right lower lung opacity is noted. Th is favors atelectasis. Cardiomegaly is unchanged. IMPRESSION: Left chest tube in place. No pneumothorax identified. Persistent left lower lung opacity and a small left pleural effusion. Electronically signed by: Wali Del Toro M.D. 02/08/2019 7:26 AM
--- NOTE | 2019-02-08 08:09 | Progress Note ---
DATE: 02/08/2019 Mr. Mercer is one day out status post a robot-assisted thoracoscopic left lower lobectomy with mediastinal lymphadenectomy for an adenocarcinoma. He looks great. He has no air leak. He has drained very little. His x-ray looks quite good. He has no pneumothorax and no infiltrates. He sounds good on exam except for a few chest tube noises or rhonchi on the left. His pain has been well controlled and he is ambulating in the hallway. He is on room air. ASSESSMENT AND PLAN: Postoperative day #1, status post completion left lower lobectomy for an adenocarcinoma with the robot. The patient has done very well. His labs were reviewed. We will probably remove his chest tube in the morning. CHECOD
--- NOTE | 2019-02-08 08:42 | Anesthesiology Progress Note ---
Date of Service February 08, 2019 Anesthesia Post Procedure Vital Signs Vital Signs: Temp Pulse Pulse Resp BP Pulse Ox 02/08/19 07:47 36.9 C 67 18 114/66 92 02/08/19 02:43 36.5 C 74 16 133/78 96 02/08/19 00:30 36.4 C L 74 16 109/63 96 02/07/19 22:42 36.5 C 68 16 122/71 98 02/07/19 20:27 36.5 C 71 16 112/68 98 02/07/19 19:00 36.3 C L 79 16 114/68 93 02/07/19 17:42 36.4 C L 56 L 16 111/65 99 02/07/19 17:15 99 02/07/19 16:25 36.4 C L 90 16 110/67 98 02/07/19 15:45 36.4 C L 73 16 112/68 100 02/07/19 15:01 36.5 C 70 16 111/67 98 02/07/19 14:25 36.5 C 77 14 111/70 97 02/07/19 14:10 75 16 109/59 L 97 02/07/19 14:00 61 14 103/57 L 98 02/07/19 13:50 36.3 C L 61 15 107/56 L 99 02/07/19 13:40 36.4 C L 63 15 98/68 L 97 02/07/19 13:30 61 18 105/56 L 97 02/07/19 13:20 70 18 104/62 97 02/07/19 13:10 62 20 98/55 L 96 02/07/19 13:00 77 20 101/56 L 98 02/07/19 12:50 78 23 110/67 98 02/07/19 12:40 76 24 107/60 94 02/07/19 12:33 36.1 C L 98 H 16 72/54 L 97 Pain Intensity Lower Back: Pain Intensity: 3 Generalized: Pain Intensity: 3 Notes Mental Status: alert / awake / arousable and participated in evaluation Patient Amnestic to Procedure: Yes Nausea / Vomiting: adequately controlled Pain: adequately controlled Airway Patency, RR, SpO2: stable & adequate BP & HR: stable & adequate Hydration State: stable & adequate Anesthetic Complications: no major complications apparent and Pt Satisfied with anesthetic care
[2019-02-08] MEDS: RANOLAZINE 500 MG ER TAB PO SCH (08:57)
[2019-02-08] MEDS: ROSUVASTATIN CALCIUM 20 MG TAB PO SCH (08:57)
[2019-02-08] MEDS: ENOXAPARIN INJ 40 MG/0.4 ML SYR SQ SCH (08:57)
[2019-02-08] MEDS: DOCUSATE SODIUM 100 MG CAP PO SCH ×2 (08:57→20:09)
[2019-02-08] MEDS: CEROVITE ADV FORMULA TAB PO SCH (08:57)
[2019-02-08] MEDS: ACETAMINOPHEN 325 MG TAB PO SCH ×4 (10:31→18:25)
[2019-02-08] MEDS: GABAPENTIN 100 MG CAP PO PRN ×2 (10:32→18:28)
[2019-02-08] MEDS ORDERED: COUGH DROP (SUGAR FREE) LOZ 24 LOZ/1 BOX BUCCAL PRN (11:49)
[2019-02-08] MEDS ORDERED: Nursing to Pharmacy Communication ONE (15:18)
[2019-02-09] MEDS: ACETAMINOPHEN 325 MG TAB PO SCH ×2 (00:13→06:31)
--- NOTE | 2019-02-09 07:27 | XRay Report ---
XR chest 1V portable CLINICAL HISTORY: LLL COMPARISON STUDY: Chest x-ray February 08, 2019. FINDINGS: Left chest tube is in place. A small left apical pneumothorax has developed since prior exa m. Superior pleural separation measures 1.2 cm. Left mid and lower lung airspace opacity has increase d. Left lung aeration has slightly diminished. Cardiomediastinal silhouette is stable IMPRESSION: 1. Small left apical pneumothorax. Left chest tube in place. 2. Increasing left lung opacity with diminished aeration. Electronically signed by: Wali Del Toro M.D. 02/09/2019 7:26 AM
[2019-02-09] MEDS: ROSUVASTATIN CALCIUM 20 MG TAB PO SCH (08:52)
[2019-02-09] MEDS: CEROVITE ADV FORMULA TAB PO SCH (08:52)
[2019-02-09] MEDS: ENOXAPARIN INJ 40 MG/0.4 ML SYR SQ SCH (08:52)
[2019-02-09] MEDS: DOCUSATE SODIUM 100 MG CAP PO SCH (08:52)
[2019-02-09] MEDS: RANOLAZINE 500 MG ER TAB PO SCH (08:52)
--- NOTE | 2019-02-09 09:25 | XRay Report ---
XR chest 1V portable CLINICAL HISTORY: tube removal COMPARISON STUDY: 02/09/2019 FINDINGS: Interval removal of the left-sided chest tube. Minimal residual left apical pneumothorax of the maximum pleural separation of 6 mm. Unchanged parenchymal densities left mid and lower lung. IMPRESSION: 1. Left-sided chest tube removal. 2. Minimal residual left apical pneumothorax The above report was generated using voice recognition software. It may contain grammatical, syntax or spelling errors. Electronically signed by: Armando Stewart M.D. 02/09/2019 9:24 AM
--- NOTE | 2019-02-10 05:32 | Discharge Summary ---
DISCHARGE DIAGNOSES: 1. Adenocarcinoma of left lower lobe. 2. History of prostate carcinoma. HOSPITAL COURSE: Issac Mercer is a very interesting 73-year-old male who has a history of prostate carcinoma which was assumed to go to his back, however, he has been stable from this and Dr. Jude Whitman from medical oncology felt that his spine is metastasis which was assumed to be due to his prostate carcinoma, it has been called into question as he has done so well. He has no evidence of disease from a prostate carcinoma standpoint. The patient was found to have a mass in his left lower lobe and we felt that this may be due to a metastatic prostate carcinoma. He is also a smoker. Several weeks, I took the patient to the operating room and did a robot-assisted thoracoscopic wedge resection of this mass after marking with indocyanine green. The frozen section showed to be an adenocarcinoma; however, they could not differentiate the prostate from the lung. The patient did well with that and was discharged home in expedient fashion, only found to have a lung primary. After much discussion in multidisciplinary conferences, we elected to proceed with a completion lobectomy. I discussed this in detail with the patient and his . On 02/07/2019, the patient underwent uncomplicated reoperative robot-assisted thoracoscopic left lower lobectomy and mediastinal lymphadenectomy. He did very well with this. He had no air leak. He was on room air on postop day 1 and was ambulating without difficulty. His chest tube was pulled on postop day 2. He was discharged home. I will see him back in the office next week.
== END 2019-02-09 11:18 | disposition home or self-care (01) | DRG 168 ==
LOC: ASU 06:10 → 3N 12:22

== ENCOUNTER 2020-02-14 12:46 | Observation (INO) ==
[2020-02-14] MEDS ORDERED: BACITRACIN OINT 0.9 GM PKT ONE (13:05)
[2020-02-14] MEDS ORDERED: LIDOCAINE HCL 1% 20 ML VIAL ONE (13:05)
[2020-02-14] MEDS ORDERED: BACITRACIN INJ 50,000 UNIT VIAL ONE (13:05)
[2020-02-14] MEDS ORDERED: MIDAZOLAM HCL 5 MG/ML 1 ML VIAL ONE (13:15)
[2020-02-14] MEDS ORDERED: fentaNYL citrate 100 MCG/2 ML VIAL ONE (13:15)
--- NOTE | 2020-02-14 13:22 | History & Physical Bridge Note ---
Date of Service February 14, 2020 History & Physical Bridge Note I have examined the patient, reviewed the History & Physical and in the interval since the performance of the History & Physical I have noted the following changes of clinical significance: no changes noted. I reviewed the indications, procedure, risks and alternatives with the patient, answered all questions. Consent obtained. Patient understands and agrees to the procedure. I also reviewed the risks and use of sedation, patient understands and consent obtained.
--- NOTE | 2020-02-14 13:23 | Pre Anesthesia Assessment ---
Date of Service February 14, 2020 Pre Sedation Assessment Vital Signs Temp Pulse Resp BP Pulse Ox 02/14/20 13:00 37.2 C 51 L 16 138/80 97 Cardiovascular RRR, no murmur, no edema + bradycardic Respiratory normal respiratory effort, lungs clear to auscultation Pre-Sedation Airway Assessment Smoking Status: Former smoker Hx Sleep Apnea: No Hx Difficult Intubation: No Short, Thick Neck: No Thyromental Distance: > or= 3.5 Finger Breadths Oral Cavity: + Capped Teeth Mallampati Class: III ASA: ASA3 NPO Status Date of Last Intake of Fluids: 02/13/20 Time of Last Intake of Fluids: 22:00 Date of Last Intake of Solid Food: 02/13/20 Time of Last Intake of Solid Foods: 22:00 Procedure Planning Contraindications for Sedation: none Current Medications Reviewed: Yes Notes The planned sedation has been discussed with the patient. Informed Consent was obtained. I have identified the patient, determined the appropriateness of sedation and have assessed the patient immediately prior to the procedure. All medicine(s) and interventions are by my order.
[2020-02-14] MEDS ORDERED: KETOROLAC TROMETHAMINE 10 MG TABLET PO PRN (15:01)
[2020-02-14] MEDS ORDERED: ACETAMINOPHEN 325 MG TAB PO PRN (15:01)
--- NOTE | 2020-02-14 15:01 | Electrophysiology Report ---
Date of Service February 14, 2020 Electrophysiology Procedure Electrophysiology Procedure Report Preoperative diagnosis: Sick sinus syndrome, first-degree AV block Postoperative diagnosis: Same Procedure: Dual-chamber pacemaker implantation Surgeon: Toi Mckeon MD Estimated blood loss: 20 cc Complications: None Disposition: Customer Consulting Manager recovery Procedure details: After obtaining informed consent for the procedure, the patient was brought to the laboratory and prepped and draped in the standard sterile manner. The left prepectoral region was anesthetized with 1% lidocaine local anesthetic and left axillary venipuncture was performed by percutaneous technique and a guidewire placed through the left subclavian vein into the superior vena cava. The area was further infiltrated with 1% lidocaine local anesthetic and a 5 cm incision was made parallel to the left clavicle and 2 cm below it and carried down to the anterior pectoralis fascia. A pacemaker pocket was formed by blunt dissection anterior to the pectoralis fascia and a bacitracin-soaked sponge (50,000 units in 50 cc normal saline solution) was placed in the pocket. An 8 Vietnamese Medtronic lead introducer was placed over the guidewire into the left subclavian vein, the dilator and guidewire were removed and a select secure pacemaker lead sheath was advanced through the introducer into the superior vena cava using a guidewire. Using the select secure sheath the lead was positioned in the high septal region, the lead was screwed into position within the septum, approaching the left bundle system. Dye was injected through the select secure sheath to confirm intraseptal location. Pacing and sensing thresholds were evaluated in bipolar configuration and are recorded on the implant data sheet. The sheath system was removed leaving the introducer in place. Another 8 Vietnamese Medtronic lead introducer was placed over the guidewire into the left subclavian vein, the dilator and guidewire were removed and a bipolar active fixation steroid tipped atrial lead was advanced through the introducer into the superior vena cava. Using a curved stylette the atrial lead was positioned in the region of the atrial appendage and the screw extended fixing the lead in position. Pacing and sensing thresholds were evaluated in bipolar configuration and are recorded on the implant data sheet. Once the leads were in position they were attached to the anterior pectoralis fascia using 2 sutures of 2-0 silk around each lead collar. The bacitracin- soaked sponge was removed from the pocket, hemostasis was obtained, the pacemaker was attached to the leads and placed in the pocket with the leads coiled beneath it. The incision was closed with a running double subcutaneous closure of 3-0 Vicryl absorbable suture, followed by running subcuticular skin closure of 4-0 Vicryl absorbable suture. Bacitracin ointment was placed on the incision and a pressure dressing applied. [facility] Electrophysiology codes Pacing Procedure 1: Pacin Insert/Replace Pacer A & V PG Moderate Sedation Codes Moderate Sedation Codes Procedure 1: Sedation/Anesthesia: 07070 Mod Sedation by the same physician;Init15 Min Child Age 5 & Up Procedure 2: Sedation/Anesthesia: 40040 Mod Sedation by the same physician; Ea [id number] Minutes
[2020-02-14] MEDS ORDERED: ALBUT/IPRATROP 3MG/0.5MG NEB 3 ML VIAL INH PRN (15:04)
[2020-02-14] MEDS ORDERED: CETIRIZINE HCL 10 MG TABLET PO PRN (15:04)
[2020-02-14] MEDS: ACETAMINOPHEN 500 MG TAB PO PRN (20:47)
[2020-02-14] MEDS ORDERED: ROSUVASTATIN CALCIUM 20 MG TAB PO SCH (21:00)
[2020-02-14] MEDS ORDERED: CEROVITE ADV FORMULA TAB PO SCH (21:00)
--- NOTE | 2020-02-15 06:36 | XRay Report ---
TWO VIEW CHEST CLINICAL HISTORY: Cardiac pacemaker implantation.. FINDINGS: PA and lateral chest radiographs are compared to study dated 06/18/2019 and correlated with chest CT dated 10/25/2019. A 2-lead cardiac pacemaker has been placed and partially obscures the left m id chest. Leads project over the right atrial appendage and right ventricle. The heart is enlarged. T he pulmonary vasculature is noncongested. Atelectasis is noted at the left lung base. No airspace con solidation is seen typical for pneumonia and there is no pleural effusion. There is postoperative jay nge and volume loss from left-sided pulmonary resection. There is no pneumothorax. The skeletal struc tures are osteopenic. The bony thorax appears intact. Degenerative change is seen throughout the thor acic spine. IMPRESSION: 1. A 2-lead cardiac pacemaker has been placed as above. No pneumothorax is identified post procedure. 2. Cardiomegaly without radiographic evidence of congestive failure. 3. No airspace consolidation or pleural effusion is identified. 4. There is postoperative change and volume loss from left-sided pulmonary resection. ACT 112: Negative or not required by law. Electronically signed by: Caio Barker M.D. 02/15/2020 6:35 AM
[2020-02-15] MEDS: ACETAMINOPHEN 500 MG TAB PO PRN (08:10)
--- NOTE | 2020-02-15 08:31 | Electrocardiogram Report ---
Test Reason : Blood Pressure : / mmHG Vent. Rate : 064 BPM Atrial Rate : 064 BPM P-R Int : 000 ms QRS Dur : 100 ms QT Int : 438 ms P-R-T Axes : 000 214 177 degrees QTc Int : 451 ms Atrial-paced rhythm with occasional Premature ventricular complexes Right superior axis deviation T wave abnormality, consider inferior ischemia Poor R wave progression, consider anterior OK vs. lead placement vs. LVH Abnormal ECG When compared with ECG of 18-JUN-2019 12:20, Electronic atrial pacemaker has replaced Sinus rhythm QRS axis Shifted right T wave inversion now evident in Lateral leads Confirmed by Sam Vega ([id number]) on 02/15/2020 8:31:55 AM Referred By: Toi Mckeon Confirmed By:Sam Vega
[2020-02-15] MEDS ORDERED: CYANOCOBALAMIN 500 MCG TABLET (VITAMIN B-12) PO SCH (09:00)
[2020-02-15] MEDS ORDERED: CHOLECALCIFEROL 1,000 UNITS 25 MCG TAB PO SCH (09:00)
[2020-02-15] MEDS ORDERED: VITAMIN B COMPLEX TAB PO SCH (09:00)
[2020-02-15] MEDS ORDERED: OMEGA-3 (PURIFIED FISH OIL) 1 GM CAP PO SCH (09:00)
[2020-02-15] MEDS ORDERED: UMECLIDINIUM BROMIDE 62.5MCG/BLISTER 7 PUFFS/INHALER INH SCH (09:00)
[2020-02-15] MEDS ORDERED: FOLIC ACID 400 MCG TAB PO SCH (09:00)
--- NOTE | 2020-02-15 09:25 | Cardiology Progress Note ---
Date of Service February 15, 2020 Assessment & Plan (1) Status post placement of cardiac pacemaker: He is doing well postop day #1. The site looks good, the x-ray looks good, the device is working very well. Stable for discharge. I am going to restart Eliquis this evening. Admission and Anticipated Discharge Date Admission Date: February 14, 2020 Subjective He feels well today, no significant incisional discomfort, no other complaints. Physical Exam Physical Exam: The incision looks clean and dry, minimal ecchymosis, no bleeding. No swelling. Cardiac rhythm is regular with no rub Lungs are clear Results & Data ([facility]) Vital Signs (Past 12 Hours) Vital Signs Temp Pulse Pulse Resp BP BP Pulse Ox 02/15/20 07:54 36.5 C 60 18 120/65 95 02/15/20 03:40 36.5 C 68 17 116/62 95 02/14/20 23:47 36.9 C 57 L 16 131/74 96 Diagnostic Findings Chest x-ray: Good lead position, no pneumothorax Telemetry: Atrial pacing predominantly, appropriate ventricular inhibition Electrocardiogram: Postop atrial pacing with intrinsic AV conduction, magnet tracing today shows AV pacing with no significant increase in QRS duration due to septal ventricular lead placement Pacemaker evaluation: Excellent pacing and sensing characteristics PG Care Time/CCT Total # of Minutes Spent Total Time Spent with Patient: Total time spent is greater than 50% in coordination of care (as documented) at patient's floor/unit and/or counseling patient: Coding Level of Care Code 57422 Post Operative Follow-Up Diagnoses Status post placement of cardiac pacemaker Z95.0 CPT Codes Dual Lead Pacemaker System - 45121 ([id number])
--- NOTE | 2020-02-15 09:36 | Discharge Summary ---
Date of Service February 15, 2020 Admission HPI Per Admitting Provider This is a 74-year-old gentleman who has lung cancer. He has had a lot of cardiac tests and care which has taken place in [place] and for which I do not have much in the way of records. Most of his history is from him and his , therefore it may not be completely accurate but does fit the brief records that I do have. He believes he has had chest discomfort going back 7 or 8 years at which time he had a catheterization in [place] where he believes he had 30% stenosis but was felt to have small vessel disease and Ranexa was started which he feels helped with his exertional chest discomfort. It sounds as though he [facility] [place] 2 [facility] 3 years [facility] and was told that it looked good, by that he interprets it as meaning he did not need a stent not that it was normal and that may be correct. He notes that as long as he takes his Ranexa he does not have exertional chest discomfort, if he forgets to take it he does get exertional chest pain. That is not changed recently. He also has a history of a slow heart rate, he did have a 24-hour monitor several years ago but was not told that he needed any intervention such as a pacemaker. He is not on medications to slow his heart rate (such as beta- blockers) and he does not have symptoms of lightheadedness, dizziness, presyncope or syncope. He was hospitalized on September 04, 2018 when he presented with chest discomfort and shortness of breath and on CT scan had bilateral acute sub-segmental and segmental pulmonary emboli in all 5 lobes. He was started on Eliquis which he has remained on since. At that time a pulmonary nodule was noted to be enlarged and his pulmonary evaluation was undertaken. Since then he has had a left lower lobe lobectomy performed February 07, 2019 which showed stage Ia adenocarcinoma. He has recovered well from that surgery. He had a treadmill stress echo done on December 14, 2018, he had appropriate blood pressure response to exercise, no chest discomfort and he had a fair exercise tolerance. No ischemia was identified on echocardiographic images. He was seen in the emergency room June 18, 2019 for some left chest burning, this was different than his angina and evaluation there disclosed a probable bronchitis. He was treated for that and feels better. He has had progressive difficulty with exertion including lightheadedness and dizziness intermittently, sometimes requiring him to hold onto something so he does not fall over, additionally he has fatigue with exertion. He was evaluated here on December 21, 2019 for the symptoms, an event recorder was arranged which he wore from December 21, 2019 through January 19, 2020. Unfortunately he was an active during that time and he did not have his presyncopal symptoms, however his overall heart rate average was 66 bpm with a heart rate ranged from 39 bpm to 138 bpm. He had first-degree heart block throughout but no higher degree AV block. He did have brief nonsustained ventricular tachycardia. Even since that time his symptoms have worsened, he is also planning to have knee surgery in about 2 weeks. His symptoms are most likely due to sinus bradycardia, therefore we will implant a pacemaker. Admission Exam Per Admitting Provider Constitutional: Alert, cooperative and in no distress. HEENT: Unremarkable Neck: No jugular venous distention, carotid pulses are normal and equal bilaterally without bruits. Pulmonary: Clear to auscultation bilaterally. Cardiac: Regular slow rhythm with no murmur, gallop or rub. Abdomen: Soft, nontender with normal bowel sounds. Extremities: No edema. Distal pulses intact. Neurologic: No focal findings. Gait is steady. Skin: No rash, ecchymoses or petechiae. Principal Diagnosis Symptomatic sinus bradycardia Discharge Exam Constitutional: Alert, cooperative and in no distress. HEENT: Unremarkable Neck: No jugular venous distention, carotid pulses are normal and equal bilaterally without bruits. Pulmonary: Clear to auscultation bilaterally. Cardiac: Regular rhythm with no murmur, gallop or rub. Abdomen: Soft, nontender with normal bowel sounds. Extremities: No edema. Distal pulses intact. Neurologic: No focal findings. Gait is steady. Skin: The device site is looks good without erythema, swelling or tenderness. No rash, significant ecchymoses or petechiae. Discharge Data Allergies Allergy/AdvReac Type Severity Reaction Status Date / Time Sulfa (Sulfonamide AdvReac Mild INCREASES Verified 02/14/20 13:01 Antibiotics) BODY TEMPERATURE Procedures Performed Operation Date: 02/14/20 14:00 Actual Procedures p Pacer with A/V Leads (Dual) - Toi Mckeon MD Ordered Studies 02/14/20 13:30 EP Lab Images for PACS ONCE Hospital Course (1) Bradycardia: He presented with symptomatic bradycardia, a dual-chamber pacemaker was implanted on February 14, 2020. The procedure was uneventful. Postoperatively on February 15, 2020 the device was working well, leads were in good position on x-ray and measurements were excellent. He will be discharged. Follow-up in 3 days. Total Time Total Time Spent Total Time Spent (In Minutes): 33 Discharge Plan Discharge Items Patient Disposition: Home - Self-Care Reason For Visit: Symptomatic Bradycardia Discharge Diagnosis: Symptomatic sinus bradycardia, post pacemaker implantation Activity: Per Instructions section Bathing: May shower/bathe in 3 days Driving/Machine Use: No limitations Non-emergency contact: Primary Care Provider Call non-emergency contact if: your symptoms worsen Follow-up/Referrals: Toi Mckeon MD [Physician] - 02/18/20 11:00 am Glenn Hall MD [Primary Care Provider] - Diet: Heart Healthy Addtl Attending Provider Instructions: ACTIVITY RECOMMENDATIONS: * Do not raise affected arm over head for 2 weeks. SPECIAL CARE INSTRUCTIONS: * If bleeding occurs, apply direct pressure to area for 5 minutes. * Call your doctor if you have severe pain, fever, drainage or bleeding at site. * Keep dressing on and dry for 48 hours then remove. * Keep any scheduled doctor's appointment. * Implant Card - hand held device with website information given. SKIN IRRITATION: * You may experience some redness and/or swelling in the area where radiation was administered. If any skin irritation occurs, please contact your family physician. FOLLOW UP VISIT: Keep any scheduled doctor appointments. Pending Studies at Discharge: No Stand-Alone Forms: My [facility], Smoking Cessation Medications and DC Order Prescriptions: Continued (DME) AeroEclipse II Nebulizer Misc See Rx Instructions .ROUTE .MEDSUPPLY Qty: 1 RF: 0 rosuvastatin [Crestor] 40 mg tablet 20 mg PO HS RF: 0 ipratropium-albuterol 0.5 mg-3 mg(2.5 mg base)/3 mL solution for nebulization 3 ml INH Q8H PRN (Reason: shortness of breath or wheezing) Qty: 180 RF: 5 Spiriva with HandiHaler 18 mcg capsule, w/inhalation device 1 cap INH DAILY Qty: 90 RF: 3 multivitamin with minerals Capsule 1 cap PO HS RF: 0 cholecalciferol (vitamin D3) [Vitamin D3] 1,000 unit Tablet 1,000 unit PO QAM RF: 0 omega 7-sgg-zso-fish oil [Fish Oil] 1,000 mg (120 mg-180 mg) Capsule 2,000 mg PO QAM RF: 0 acetaminophen [Tylenol Extra Strength] 500 mg Tablet 1,000 mg PO Q8H PRN (Reason: Fever Or Pain) RF: 0 vitamin G66-rohii acid 500-400 mcg Tablet 1 tab PO QAM RF: 0 vitamin B complex Tablet 1 tab PO QAM RF: 0 ranolazine [Ranexa] 500 mg Tablet Extended Release 12 Hr 500 mg PO DAILY@1200 RF: 0 Eliquis 5 mg Tablet 5 mg PO BID RF: 0 cetirizine [Zyrtec] 10 mg Tablet 5 mg PO BID PRN (Reason: Allergy Symptoms) RF: 0 albuterol sulfate 90 mcg/actuation HFA aerosol inhaler 2 puff INHALATION BID PRN (Reason: sob) RF: 0 Discharge Orders: Discharge Order (Routine); Ordered 02/15/20 Ordered By: Toi Mckeon Admission Data Admit Date/Time: 02/14/20 13:54 Attending Provider: Toi Mckeon Admit Provider: Toi Mckeon Primary Care Provider: Glenn Hall Coding Level of Care Code 71823 OBS Care - Discharge Diagnoses Bradycardia R00.1 Time Spent (min) 33
--- NOTE | 2020-02-15 11:00 | Electrocardiogram Report ---
Test Reason : Blood Pressure : / mmHG Vent. Rate : 084 BPM Atrial Rate : 084 BPM P-R Int : 206 ms QRS Dur : 108 ms QT Int : 402 ms P-R-T Axes : 090 080 -80 degrees QTc Int : 475 ms AV dual-paced rhythm Abnormal ECG When compared with ECG of 14-FEB-2020 16:23, Electronic ventricular pacemaker has replaced Electronic atrial pacemaker Confirmed by Sam Vega ([id number]) on 02/15/2020 11:00:22 AM Referred By: Toi Mckeon Confirmed By:Sam Vega
[2020-02-15] MEDS ORDERED: RANOLAZINE 500 MG ER TAB PO SCH (12:00)
== END 2020-02-15 11:22 | disposition home or self-care (01) ==
LOC: EP 12:46 → 2S 12:46

== ENCOUNTER 2020-02-22 09:03 | Observation (INO) ==
--- NOTE | 2020-02-01 16:02 | PAT Medication Instructions ---
Medication Instructions Date of Service February 01, 2020 Home Medications Medication Instructions Recorded nebulizers #1 08/20/19 ipratropium 0.5 mg-albuterol 3 mg 3 ml INH Q8H PRN #180 ml 11/13/19 (2.5 mg base)/3 mL nebulization soln tiotropium bromide 18 mcg capsule 1 cap INH DAILY #90 puffs 11/13/19 with inhalation device cholecalciferol (vitamin D3) [Vitamin D3] 1,000 unit PO QAM docusate sodium 100 mg PO HS PRN multivitamin with minerals 1 cap PO HS omega 3-koz-yyg-fish oil [Fish Oil] 2,000 mg PO QAM acetaminophen [Tylenol Extra Strength] 1,000 mg PO Q8H PRN vitamin B complex 1 tab PO QAM vitamin M63-kdgnv acid 1 tab PO QAM Eliquis 5 mg PO BID ranolazine [Ranexa] 500 mg PO DAILY@1200 rosuvastatin 40 mg tablet 20 mg PO HS cetirizine [Zyrtec] 5 mg PO BID PRN ipratropium 0.5 mg-albuterol 3 mg (2.5 mg base)/3 mL nebulization soln 3 ml INH Q8H PRN tiotropium bromide 18 mcg capsule with inhalation device 1 cap INH DAILY albuterol sulfate 2 puff INHALATION BID PRN ASK your prescriber and surgeon Eliquis 5 mg PO BID (in order for spinal anesthesia, Eliquis needs to be stopped 72 hours/3 days before surgery. Please check if okay with doctor that prescribes this to you) STOP taking 2 weeks before surgery (or as soon as possible if surgery is within 2 weeks) omega 8-gap-kgf-fish oil [Fish Oil] 2,000 mg PO QAM DO NOT take the morning of surgery cholecalciferol (vitamin D3) [Vitamin D3] 1,000 unit PO QAM vitamin B complex 1 tab PO QAM vitamin N95-vpplr acid 1 tab PO QAM cetirizine [Zyrtec] 5 mg PO BID PRN Take morning of surgery With a small sip of water, OTHERWISE NOTHING TO EAT OR DRINK AFTER MIDNIGHT: acetaminophen [Tylenol Extra Strength] 1,000 mg PO Q8H PRN (okay to take up to 4 hours prior to surgery if needed) ranolazine [Ranexa] 500 mg PO DAILY@1200 (depending on time of surgery) ipratropium 0.5 mg-albuterol 3 mg (2.5 mg base)/3 mL nebulization soln 3 ml INH Q8H PRN (if needed) tiotropium bromide 18 mcg capsule with inhalation device 1 cap INH DAILY albuterol sulfate 2 puff INHALATION BID PRN (use if needed; please bring with you to hospital day of surgery if possible) Take evening before surgery docusate sodium 100 mg PO HS PRN (if needed) multivitamin with minerals 1 cap PO HS acetaminophen [Tylenol Extra Strength] 1,000 mg PO Q8H PRN (if needed) rosuvastatin 40 mg tablet 20 mg PO HS cetirizine [Zyrtec] 5 mg PO BID PRN (if needed) ipratropium 0.5 mg-albuterol 3 mg (2.5 mg base)/3 mL nebulization soln 3 ml INH Q8H PRN (if needed) albuterol sulfate 2 puff INHALATION BID PRN (if needed) Other Notes If you have any questions please call us at [phone] or [phone] or [phone] or [phone]
--- NOTE | 2020-02-04 11:16 | Anesthesiology Consultation ---
Date of Service February 04, 2020 Assessment & Plan (1) Encounter for pre-operative examination: COVID Status: As of 02/03 assessment, patient denies travel to endemic area, known exposure/sick contacts, or symptoms of COVID19. Patient instructed that they and their household members must follow strict social distancing guidelines, wear a mask in public and avoid travel for 14 days prior to surgery. Preoperative COVID19 testing to be completed prior to surgery per surgeon's ar rangements [place] [facility] [place] made aware to self-isolate as much as possible between COVID testing and surgery. Patient to see Dr. Vernon for f/u of event monitor on 02/11. Will notify cardio of upcoming surgery and ask for risk stratification/comment. Chart Review Chart Review: Acceptable Risk for Surgery (pending cardiology visit 02/11) and Patient seen in Pre Admission Testing Teaching & Discussion Instructed NPO after midnight before surgery, except medications with 15 cc of water. Medication instructions provided according to the PAT guidelines. History Surgery Operation Date: 02/22/20 11:10 Proposed Procedures p Left Total Knee Arthroplasty - Johan Brady, Height/Weight Height: 5 ft 7 in Weight: 103.8 kg Allergies Allergy/AdvReac Type Severity Reaction Status Date / Time Sulfa (Sulfonamide AdvReac Mild INCREASES Verified 02/04/20 09:44 Antibiotics) BODY TEMPERATURE Medications Home Medications Medication Instructions Recorded Confirmed Last Taken cholecalciferol (vitamin D3) 1,000 unit PO QAM 12/28/17 02/04/20 06/18/19 [Vitamin D3] docusate sodium 100 mg PO HS PRN 12/28/17 02/04/20 06/17/19 multivitamin with minerals 1 cap PO HS 12/28/17 02/04/20 06/17/19 omega 3-mis-pak-fish oil [Fish Oil] 2,000 mg PO QAM 12/28/17 02/04/20 06/18/19 acetaminophen [Tylenol Extra 1,000 mg PO Q8H PRN 09/04/18 02/04/20 06/17/19 Strength] vitamin B complex 1 tab PO QAM 09/04/18 02/04/20 06/18/19 vitamin Q91-bpind acid 1 tab PO QAM 09/04/18 02/04/20 06/18/19 Eliquis 5 mg PO BID 11/13/18 02/04/20 06/18/19 ranolazine [Ranexa] 500 mg PO DAILY@1200 11/13/18 02/04/20 06/17/19 12:00 rosuvastatin 40 mg tablet 20 mg PO HS tab 12/13/18 02/04/20 06/17/19 cetirizine [Zyrtec] 5 mg PO BID PRN 06/18/19 02/04/20 06/18/19 nebulizers #1 08/20/19 02/04/20 Unknown ipratropium 0.5 mg-albuterol 3 mg 3 ml INH Q8H PRN #180 ml 11/13/19 02/04/20 Unknown (2.5 mg base)/3 mL nebulization soln tiotropium bromide 18 mcg capsule 1 cap INH DAILY #90 puffs 11/13/19 02/04/20 Unknown with inhalation device albuterol sulfate 2 puff INHALATION BID PRN 01/28/20 02/04/20 Unknown Past Medical History Medical History Anxiety Bradycardia has had for a few years and follow with DR. Price from [facility] and [facility], dr lock. Does occ get lightheaded. [facility] cardio following. Depression Hearing deficit High cholesterol Hx pulmonary embolism 08/2018 and takes eliquis Metastatic bone cancer T3 AREA. Likely 2/2 prostate cancer, is receiving Lupron injections monthly and cancer has remained stable. Near syncope Intermittent episodes, was evaluated by cardiology with 30 day event monitor 12/2019. Avg HR 66bpm, slowest 39bpm. Will f/u with cardiology prior to surgery. Carotid duplex showed < 50% stenosis B/L. Osteoarthritis Primary adenocarcinoma of lower lobe of left lung surgical intervention and no chemo / radiation Prostate cancer surgical intervention and then radiation and chemo- 06/2009 SSS (sick sinus syndrome) With bradycardia. Follows with Dr. Vernon/[facility]. Stable angina On Ranexa. Per PCP 10/25/18, "CAD nonobstructive with angina and dyspnea." Exercise / Class Metabolic Activity II 4-5 Yardwork/Stairs/Walk up hill (Mild SOB with 1 FOS, but can still do it, denies any CP) Past Family History Family History Other Diabetes No pertinent family history Past Surgical History Surgical History (Updated 01/28/20 @ 10:05 by Ashley Mcleod RN) History of cardiac catheterization about 5 years ago and no stent History of colonoscopy History of lung biopsy (12/20/18) Wedge Resection LLL Dr. Diego History of lung surgery Robotic Left Video Assisted Thoracoscopy with left lower lobe wedge resection History of right knee joint replacement Hx of prostatectomy and lymph nodes removed S/P bronchoscopy with biopsy (11/14/18) Dr. Diego 11-14-18 Past Anesthesia History No Family Hx of Anesthesia Complications Patient reports he has had severe bradycardia post-op (has baseline bradycardia). Pt had L VATS/lobectomy 02/07/19 and no post-op bradycardia noted in records. History of PONV No Hx of PONV and Hx of Motion Sickness Social History Smoking Status: Former smoker Do You Dip or Chew Tobacco: No Smoking End Date: 1971 Hx Alcohol Use: No Hx Substance Use: No substance use type: does not use Review of Systems Pt denies any recent chest pain, shortness of breath above baseline, palpitations, cough, fever, URI, or uncontrolled acid reflux. Physical Exam Vital Signs BP: 112/61 P: 51bpm SPO2: 98% RA T: 97.8 F R: 12 ENMT Mouth: + dental restorations (few caps and crowns); no chipped teeth and no loose teeth Thyromental Distance: > or= 3.5 Finger Breadths Mallampati Class: II Neck normal visual inspection, + limited neck extension (mild) and + facial hair (very short) Respiratory normal respiratory effort Auscultation: lungs clear to auscultation bilaterally Prolonged exp phase Cardiovascular Rate/Rhythm: regular rhythm and + bradycardic Heart Sounds: no murmur Vessels: no carotid bruit Extremities: + edema (B/L nonpitting) Testing Laboratory Results 02/04/20 11:28 02/04/20 11:28 PT 10.9 Seconds (9.0-12.0) 02/04/20 11:28 INR 1.0 (0.9-1.1) 02/04/20 11:28 APTT 25.9 Seconds (21.0-31.0) 02/04/20 11:28 Blood Type O Negative 02/04/20 11:28 Antibody Screen NEGATIVE 02/04/20 11:28 Electrocardiogram Date: 06/18/19 Findings: + SB @ (51bpm) Left axis deviation Minimal voltage criteria for LVH, may be normal variant Poor R wave progression, consider anterior SD vs. lead placement vs. LVH When compared with ECG of 12/20/18, Premature atrial complexes are no longer present, Vent. rate has decreased BY 39 BPM, Nonspecific T wave abnormality no longer evident in Lateral leads, QT has shortened. Chest X-Ray Date: 06/18/19 Postsurgical changes on the left with volume loss and chronic blunting of the left lateral costophrenic angle. No acute findings. Echocardiogram Date: 10/05/18 EF: 60-65% LV Function: normal RWMA: + none Other Findings: + LVH (mild concentric) Valvular Disease: + MR (mild) Normal est RVSP. Stress Test Date: 12/14/18 Negative stress echo for ischemia greater than 85% MPHR. Indeterminate exercise EKG due to significant artifact. Appropriate blood pressure response to exercise. No arrhythmia. Study terminated due to fatigue. No chest pain repo rted. Fair exercise tolerance. Other Testing Chest CT 10/25/19 IMPRESSION: 1. Findings are similar to the 04/03/2019 examination. 2. There is postoperative change from left-sided pulmonary resections. 3. There are least 4 small right-sided pulmonary nodules. These have not appreciably changed dating back to 2018 and are of low suspicion. No new pulmonary lesion is identified. 4. Perihilar soft tissue thickening in the right lower lobe is similar to previous. 5. A sclerotic focus within the body of T3 is unchanged from prior studies and remains pathologically indeterminant. 6. There is no airspace consolidation typical for pneumonia.
[2020-02-04 12:33] LABS: Basophils # (auto) 0.01 K/uL (0-0.2); Basophils % (auto) 0.2 %; Eosinophils # (auto) 0.12 K/uL (0-0.5); Eosinophils % (auto) 2.8 %; Hematocrit (blood only) 39.2 % (42-52); Lymphocytes # (auto) 1.15 K/uL (1.2-3.4); Lymphocytes % (auto) 26.4 %; Mean Corpuscular Hemoglobin 31.9 pg (25-34); Mean Corpuscular Hgb Conc 33.2 g/dL (32-36); Mean Corpuscular Volume 96.3 fL (80-100); Mean Platelet Volume 9.9 fL (7.4-10.4); Monocytes # (auto) 0.38 K/uL (0.11-0.59); Monocytes % (auto) 8.7 %; Neutrophils # (auto) 2.69 K/uL (1.4-6.5); Neutrophils % (auto) 61.9 %; Platelet Count 213 K/uL (130-400); RDW Coefficient of Variation 13.7 % (11.5-14.5); RDW Standard Deviation 48.4 fL (36.4-46.3); Red Blood Count 4.07 M/uL (4.7-6.1); White Blood Count 4.35 K/uL (4.8-10.8)
[2020-02-04 12:41] LABS: Creatinine Clr Calc Pharmacy 89.7 ml/min; Est GFR (African American) 100.5; Est GFR (Non-African American) 86.7; Potassium 4.9 mmol/L (3.5-5.1)
[2020-02-04 12:42] LABS: Partial Thromboplastin Ratio 0.9; Partial Thromboplastin Time 25.9 Seconds (21.0-31.0); Prothrombin Time 10.9 Seconds (9.0-12.0)
--- NOTE | 2020-02-21 07:02 | History & Physical Report ---
Date of Service February 21, 2020 Assessment & Plan (1) Left knee DJD: We will proceed with a left total knee arthroplasty. Postoperatively he will be placed back on his Eliquis for DVT prophylaxis. He was initially hoping to use [facility] upon discharge, however there is questions if they are still able to provide to the [place] area. If not he will use a home nursing agency. Present on Admission?: Yes History of Present Illness Chief Complaint: Primary osteoarthritis of the left knee Primary Care Provider: Glenn Hall MD Quoc is a pleasant 74-year-old male who has had a right knee replaced in [place] about 7 years ago. He has done well with that. Unfortunately, he is now dealing with severe left knee pain. He has had multiple medical issues since his last knee replacement. He does have prostate cancer, which metastasized to the T3 vertebral body. He has had radiation as well as chemotherapy. He has had lung cancer and had the left lower lobe of his left lung removed. He had a pulmonary embolism secondary to that as well, for which she is on Eliquis. He also had some bradycardia, but he says that he has been improved since the partial lung resection. Unfortunately, he is having trouble ambulating and being active because of his left knee. His knee hurts him all the time. X-rays and clinical examination were diagnostic for advanced osteoarthritis of the left knee. After failing extensive conservative treatment, he has elected to proceed with a left total knee arthroplasty. Allergies Allergy/AdvReac Type Severity Reaction Status Date / Time Sulfa (Sulfonamide AdvReac Mild INCREASES Verified 02/14/20 13:01 Antibiotics) BODY TEMPERATURE Home Medications Home Medications Medication Instructions Recorded Confirmed Type cholecalciferol (vitamin D3) 1,000 unit PO QAM 12/28/17 02/14/20 History [Vitamin D3] multivitamin with minerals 1 cap PO HS 12/28/17 02/14/20 History omega 3-pmi-kve-fish oil [Fish Oil] 2,000 mg PO QAM 12/28/17 02/14/20 History acetaminophen [Tylenol Extra 1,000 mg PO Q8H PRN 09/04/18 02/14/20 History Strength] vitamin B complex 1 tab PO QAM 09/04/18 02/14/20 History vitamin L72-afllb acid 1 tab PO QAM 09/04/18 02/14/20 History Eliquis 5 mg PO BID 11/13/18 02/14/20 History ranolazine [Ranexa] 500 mg PO DAILY@1200 11/13/18 02/14/20 History rosuvastatin 40 mg tablet 20 mg PO HS tab 12/13/18 02/14/20 History cetirizine [Zyrtec] 5 mg PO BID PRN 06/18/19 02/14/20 History nebulizers #1 08/20/19 02/14/20 Rx ipratropium 0.5 mg-albuterol 3 mg 3 ml INH Q8H PRN #180 ml 11/13/19 02/14/20 Rx (2.5 mg base)/3 mL nebulization soln tiotropium bromide 18 mcg capsule 1 cap INH DAILY #90 puffs 11/13/19 02/14/20 Rx with inhalation device albuterol sulfate 2 puff INHALATION BID PRN 01/28/20 02/14/20 History Past Med/Surg History Medical History Anxiety Bradycardia has had for a few years and follow with DR. Price from [place] and [facility], dr lock. Does occ get lightheaded. [facility] cardio following. Depression Hearing deficit High cholesterol Hx pulmonary embolism 08/2018 and takes eliquis Metastatic bone cancer T3 AREA. Likely 2/2 prostate cancer, is receiving Lupron injections monthly and cancer has remained stable. Near syncope Intermittent episodes, was evaluated by cardiology with 30 day event monitor 12/2019. Avg HR 66bpm, slowest 39bpm. Will f/u with cardiology prior to surgery. Carotid duplex showed < 50% stenosis B/L. Osteoarthritis Primary adenocarcinoma of lower lobe of left lung surgical intervention and no chemo / radiation Prostate cancer surgical intervention and then radiation and chemo- 06/2009 SSS (sick sinus syndrome) With bradycardia. Follows with Dr. Vernon/[facility]. Stable angina On Ranexa. Per PCP 10/25/18, "CAD nonobstructive with angina and dyspnea." Surgical History History of cardiac catheterization about 5 years ago and no stent History of colonoscopy History of lung biopsy (12/20/18) Wedge Resection [facility] Dr. Diego History of lung surgery Robotic Left Video Assisted Thoracoscopy with left lower lobe wedge resection History of right knee joint replacement Hx of prostatectomy and lymph nodes removed S/P bronchoscopy with biopsy (11/14/18) Dr. Diego 11-14-18 Family History Other Diabetes No pertinent family history Social History Smoking Status: Former smoker Second Hand Exposure: No; Hx Alcohol Use: No Hx Substance Use: No Preferred Language: Maltese Communication Ability: Effective Examination Scorer Required: No Beliefs That Will Affect Care: None Current Living Situation: Spouse Feels Safe at Home: Yes Assistive Devices: Glasses, Hearing Aid - Left and Hearing Aid - Right Review of Systems Review of Systems: All systems reviewed & are unremarkable except as noted in HPI & below Physical Exam Constitutional: WD/WN, vitals as above Eyes: PERRL, conjunctivae normal, anicteric sclerae ENMT: external ear and nose normal, oropharynx normal Neck: trachea midline, no thyromegaly Respiratory: normal respiratory effort Cardiovascular: RRR, no murmur, no edema Gastrointestinal (Abdomen): normal bowel sounds, soft, nontender, no hepatosplenomegaly Musculoskeletal: On physical examination of the left knee there is a trace effusion. There is near full range of motion and no evidence of instability. There is significant tenderness palpation along the medial and lateral joint lines and over the distal femoral condyles. Psychiatric: A+Ox3, euthymic affect Results & Data Results & Data ([facility]) Diagnostic Findings Radiographs of the left knee demonstrate advanced osteoarthritis with joint space narrowing osteophyte formation and gior-kd-zlts articulation. PG Care Time/CCT Total # of Minutes Spent Total Time Spent with Patient: Total time spent is greater than 50% in coordination of care (as documented) at patient's floor/unit and/or counseling patient: Coding Level of Care Code None Diagnoses Left knee DJD M17.12
[~2020-02-22 09:03] MED LIST changes: +ACETAMINOPHEN 500 MG TAB PO SCH; +BUPIVACAINE 0.5 % 5 MG/1 ML PF 10ML VIAL ONE; +FAMOTIDINE 20 MG TAB PO SCH; +GABAPENTIN 300 MG CAP PO SCH; +LR 60ML/HR IV SCH; +ROPIVACAINE 0.5% 5 MG/ML 30 ML VIAL ONE; +ROPIVACAINE 0.5% HCL/PF 150 MG, BUPIVACAINE 0.5% MPF 30 ML, EPINEPHrine 30MG/30ML (OR U... INSTIL SCH; +TRANEXAMIC ACID 1,000 MG **IV Intra-op IV SCH; +TRANEXAMIC ACID 1,000 MG **IV Pre-op IV SCH; +ceFAZolin 2000MG 2,000 MG/15 ML SYR IV SCH; +dexAMETHasone 4 MG TAB PO SCH
[2020-02-22] MEDS ORDERED: PROPOFOL IV EMULSION 10 MG/ML 20 ML VIAL IV ONE (10:09)
[2020-02-22] MEDS ORDERED: LIDOCAINE HCL 2% 2 ML VIAL/AMP(20MG/ML) INFIL ONE (10:09)
[2020-02-22] MEDS ORDERED: MIDAZOLAM HCL 1 MG/ML 2ML VIAL ONE (10:10)
[2020-02-22] MEDS ORDERED: fentaNYL citrate 100 MCG/2 ML VIAL ONE (10:10)
--- NOTE | 2020-02-22 10:36 | History & Physical Bridge Note ---
Date of Service February 22, 2020 History & Physical Bridge Note I have examined the patient, reviewed the History & Physical and in the interval since the performance of the History & Physical I have noted the following changes of clinical significance: no changes noted
[2020-02-22] MEDS ORDERED: ORTHO JOINT ANESTHETIC ONE (10:54)
[2020-02-22] MEDS ORDERED: KETAMINE 50 MG/5 ML SYRINGE ONE (11:41)
--- NOTE | 2020-02-22 12:33 | Operative Report ---
PG Post Operative Report Pre & Post Diagnosis Operation Date: 02/22/20 11:20 Pre-Op Diagnosis: Left Knee Degenerative Joint Disease Post-Op Diagnosis: Left Knee Degenerative Joint Disease I identified the patient and participated in the time-out.: Yes Procedure Operation Date: 02/22/20 11:20 Actual Procedures p Left Total Knee Arthroplasty(Left) - Johan Brady DO Surgeon Johan Brady, Ward Helper Johan Calloway PAC Estimated Blood Loss 20 Findings Consistent with Post-Op Diagnosis Specimens Left femoral and tibial bone Complications none Disposition Disposition: Recovery Room Indications Issac is a pleasant 74-year-old male who is been dealing with chronic increasing left knee pain. X-rays and clinical examination were diagnostic for advanced osteoarthritis of the left knee. After failing conservative treatment, he elected proceed with a left total knee arthroplasty. Description of Procedure Implants used: I used a Megan Persona total knee arthroplasty system with a size 12 standard femur, G with a 30 mm mini stent tibia, 32 patella, and a size 10 medial congruent polyethylene bearing. All components were cemented in place with Palacos G cement. Issac arrived [facility] for the above procedure. He was seen in the preoperative holding area and the operative extremity was identified and signed. He was given a preoperative antibiotic, TXA, a spinal anesthetic and an adductor nerve block. He was taken back to the operating room and laid on the table in supine position. He was given basic sedation. The operative knee was then prepped and draped in sterile fashion. A timeout was done, and the patient and the operative extremity was properly identified. A midline incision was made directly over the patella. Dissection was taken down to the extensor mechanism. A subvastus arthrotomy was used. The medial retinaculum was released and the fat pad was mostly excised. The knee was flexed and the ACL, PCL, and meniscus were removed. A drill was sent down the center of the femoral canal followed by an intramedullary jillian. Off that jillian a distal femoral cutting block was placed. 9 mm was resected off the distal femur at 5 of valgus. A posterior referencing AP sizing guide was then placed on the distal femur. The femur measured to be a size 12 standard. 2 drill holes were placed in 3 of external rotation. A 4-in-1 cutting block was then impacted into place. Anterior, posterior, and chamfer cuts were then made. The proximal tibia was then exposed. An external tibial alignment guide was placed. A tibial cut guide was then anchored in place and the proximal tibia was then resected. The posterior aspect of the knee was then opened up and any additional meniscus fragments and osteophytes were removed. The tibia measured to be a size G. The tibial plate was then placed in the appropriate rotation and the tibia was drilled and punched. Trial components were then placed. I used a size 10 medial congruent polyethylene insert. The knee was brought through a full range of motion and felt to be stable. The peg holes for the femoral component were then drilled. The patella was then everted and 9 mm was resected off the posterior aspect of the patella. The patella measured to be a size 32. 3 peg holes were then drilled. A trial patella was placed. The knee was once again brought through a full range of motion and felt to be stable. Trial components were then removed. The surrounding soft tissues were injected with 100 cc of an orthopedic pain control cocktail. All components were then cemented into place with Palacos G cement. The final polyethylene insert was then snapped into place. Once cement was dry the tourniquet was deflated. Hemostasis was obtained. A dilute betadyne lavage was then done for 3 minutes. The joint was then irrigated with normal saline solution. The subvastus arthrotomy was then closed with #1 Vicryl suture. The skin was closed with 2-0 Vicryl, 3-0V lock suture, and randell. A Silverlon and a soft compressive dressing were placed. He was then transferred to a hospital bed and taken to the postanesthesia care unit in stable condition. He tolerated the procedure well. Johan Calloway PA-C, was present for the entire procedure. He was critical for patient positioning, prepping, draping, retraction exposure, wound closure and application of sterile dressing. I attest to the content of the Intraoperative Record and any orders documented therein. Any exceptions are noted below.
--- NOTE | 2020-02-22 13:38 | XRay Report ---
XR knee LT 1 or 2V routine CLINICAL HISTORY: Surgical Post Op COMPARISON: January 21, 2020 DISCUSSION: There are postsurgical changes of a total left knee arthroplasty and patellar resurfacing . The femoral tibial components appear well seated. There is gas present within the soft tissues cons istent with recent surgery. There are overlying skin randell. IMPRESSION: Postsurgical changes of a total left knee arthroplasty. ACT 112: Negative or not required by law. Electronically signed by: Victorino Giang M.D. 02/22/2020 1:37 PM
[2020-02-22] MEDS ORDERED: ONDANSETRON INJ 2 MG/ML 2 ML VIAL IV PRN (13:59)
[2020-02-22] MEDS ORDERED: ALBUTEROL HFA 8 GM INHALER INH PRN (13:59)
[2020-02-22] MEDS ORDERED: METOCLOPRAMIDE HCL INJ 5 MG/ML 2 ML VIAL IV PRN (13:59)
[2020-02-22] MEDS ORDERED: SODIUM CHLORIDE 0.9% 1000ML 1,000 ML IV SCH (13:59)
[2020-02-22] MEDS ORDERED: NALOXONE HCL 0.4 MG/1 ML VIAL/CARP IV PRN (13:59)
[2020-02-22] MEDS ORDERED: CETIRIZINE HCL 10 MG TABLET PO PRN (13:59)
[2020-02-22] MEDS ORDERED: ALBUT/IPRATROP 3MG/0.5MG NEB 3 ML VIAL INH PRN (13:59)
[2020-02-22] MEDS ORDERED: bisacodyL 10 MG SUPP PR PRN (13:59)
[2020-02-22] MEDS ORDERED: MAGNESIUM HYDROXIDE SUSP 30 ML UDC PO PRN (13:59)
[2020-02-22] MEDS ORDERED: HYDROmorphone INJ 0.5 MG/0.5 ML SYR IV PRN (13:59)
[2020-02-22] MEDS ORDERED: oxyCODONE HCL IR 5 MG TAB (IMMEDIATE RELEASE) PO PRN (13:59)
--- NOTE | 2020-02-22 14:06 | Anesthesiology Progress Note ---
Date of Service February 22, 2020 Anesthesia Post Procedure Vital Signs Vital Signs: Temp Pulse Pulse Pulse Resp BP Pulse Ox 02/22/20 14:04 60 18 113/71 99 02/22/20 13:35 36.4 C L 59 L 16 122/74 100 02/22/20 13:30 70 16 137/63 98 02/22/20 13:15 36.4 C L 60 16 127/69 96 02/22/20 13:05 60 15 125/63 96 02/22/20 12:56 36.1 C L 63 16 115/62 95 02/22/20 09:24 36.7 C 62 18 140/82 99 Pain Intensity Left Knee: Pain Intensity: 2 Transfer of Care Handoff Completed per policy Notes Mental Status: alert / awake / arousable and participated in evaluation Patient Amnestic to Procedure: Yes Nausea / Vomiting: adequately controlled Pain: adequately controlled Airway Patency, RR, SpO2: stable & adequate BP & HR: stable & adequate Hydration State: stable & adequate Neuraxial Anesthesia: was administered and sensory block is resolving Anesthetic Complications: no major complications apparent
[2020-02-22] MEDS: ACETAMINOPHEN 500 MG TAB PO SCH (17:25)
[2020-02-22] MEDS: GABAPENTIN 300 MG CAP PO SCH ×2 (17:25→21:03)
[2020-02-22] MEDS: KETOROLAC TROMETHAMINE 15 MG/ML VIAL IV SCH ×2 (17:26→23:19)
[2020-02-22] MEDS: ROSUVASTATIN CALCIUM 20 MG TAB PO SCH (21:03)
[2020-02-22] MEDS: ceFAZolin 2000MG 2,000 MG/15 ML SYR IV SCH (21:03)
[2020-02-22] MEDS: SENNA 8.6 MG TAB PO SCH (21:04)
[2020-02-22] MEDS: DOCUSATE SODIUM 100 MG CAP PO SCH (21:04)
[2020-02-23] MEDS: ceFAZolin 2000MG 2,000 MG/15 ML SYR IV SCH (04:35)
[2020-02-23] MEDS: KETOROLAC TROMETHAMINE 15 MG/ML VIAL IV SCH ×4 (05:28→23:56)
[2020-02-23] MEDS: ACETAMINOPHEN 500 MG TAB PO SCH ×3 (05:28→21:41)
[2020-02-23 07:57] LABS: Hematocrit (blood only) 35.3 % (42-52); Mean Corpuscular Volume 94.1 fL (80-100); Mean Platelet Volume 9.6 fL (7.4-10.4); Platelet Count 179 K/uL (130-400); RDW Coefficient of Variation 13.1 % (11.5-14.5); RDW Standard Deviation 45.4 fL (36.4-46.3); Red Blood Count 3.75 M/uL (4.7-6.1); White Blood Count 11.81 K/uL (4.8-10.8)
[2020-02-23] MEDS ORDERED: dexAMETHasone 4 MG TAB PO SCH (08:00)
[2020-02-23 08:24] LABS: Calcium 8.5 mg/dl (8.5-10.1); Creatinine Clr Calc Pharmacy 84.2 ml/min; Est GFR (African American) 98.5; Potassium 4.4 mmol/L (3.5-5.1)
[2020-02-23] MEDS: MULTIVITAMIN TAB PO SCH (08:30)
[2020-02-23] MEDS: GABAPENTIN 300 MG CAP PO SCH ×3 (08:30→20:35)
[2020-02-23] MEDS: UMECLIDINIUM BROMIDE 62.5MCG/BLISTER 7 PUFFS/INHALER INH SCH (08:31)
[2020-02-23] MEDS: DOCUSATE SODIUM 100 MG CAP PO SCH ×2 (08:31→20:35)
[2020-02-23] MEDS ORDERED: traMADol HCL 50 MG TABLET PO PRN (08:36)
[2020-02-23] MEDS: APIXABAN 5 MG TABLET PO SCH ×2 (08:36→20:35)
--- NOTE | 2020-02-23 08:39 | Orthopedic Progress Note ---
Date of Service February 23, 2020 Assessment & Plan (1) Status post left knee replacement: Overall he is doing well. Is not having much pain in the left knee. He will be seen by physical therapy today for ambulation and range of motion exercises. He is on Eliquis for DVT prophylaxis. We will keep him in the hospital today for postoperative pain control and stability. He plans to be discharged home tomorrow. Present on Admission?: Yes Admission and Anticipated Discharge Date Admission Date: February 22, 2020 Montserrat Kumari was seen and examined at bedside this morning. Overall he is doing very well. He is having much pain in the left knee. He is already been up and ambulating around the nurses station. He has no complaints. Physical Exam Physical Exam: On physical examination of the left knee, the dressing is clean and dry. He sitting with his knee flexed at 90 degrees. He is neurovascularly intact. Results & Data ([facility]) Vital Signs (Past 12 Hours) Vital Signs Temp Pulse Resp BP Pulse Ox 02/23/20 06:34 36.5 C 64 16 109/68 98 02/23/20 03:26 36.6 C 62 20 112/62 96 02/23/20 00:01 36.5 C 61 18 113/63 97 02/22/20 21:40 36.3 C L 60 14 110/61 98 Laboratory Results Johan Calloway PA-C, was present for the entire procedure. He was critical for patient positioning, prepping, draping, retraction exposure, wound closure and application of sterile dressing. Diagnostic Findings Postoperative x-rays of the left knee show the prosthesis to be in anatomic alignment without any evidence of fracture, dislocation, or loosening. PG Care Time/CCT Total # of Minutes Spent Total Time Spent with Patient: Total time spent is greater than 50% in coordination of care (as documented) at patient's floor/unit and/or counseling p atient: Coding Level of Care Code None Diagnoses Status post left knee replacement Z96.652
[2020-02-23] MEDS ORDERED: RANOLAZINE 500 MG ER TAB PO SCH (12:00)
[2020-02-23] MEDS: ROSUVASTATIN CALCIUM 20 MG TAB PO SCH (20:35)
[2020-02-23] MEDS: SENNA 8.6 MG TAB PO SCH (20:36)
[2020-02-24] MEDS: ACETAMINOPHEN 500 MG TAB PO SCH (05:26)
[2020-02-24] MEDS: KETOROLAC TROMETHAMINE 15 MG/ML VIAL IV SCH (05:27)
--- NOTE | 2020-02-24 06:57 | Orthopedic Progress Note ---
Date of Service February 24, 2020 Assessment & Plan (1) Status post left knee replacement: Overall he is doing very well. Is not having much pain in the left knee. He will be seen by physical therapy today for ambulation and range of motion exercises. He can be discharged home later today. He is on Eliquis for DVT prophylaxis. He will follow-up with orthopedics in 2 weeks. Present on Admission?: Yes Admission and Anticipated Discharge Date Admission Date: February 22, 2020 Montserrat Quoc was seen and examined at bedside this morning. Overall is doing very well. Is not having too much pain in the left knee. He was able to participate well with physical therapy doing ambulation and range of motion exercises yesterday. He has no complaints. Physical Exam Physical Exam: On physical examination of the left knee, the dressing is clean and dry. He is sitting at the edge of the bed with his knee flexed at 90 degrees. He is neurovascularly intact. Results & Data ([facility]) Vital Signs (Past 12 Hours) Vital Signs Temp Pulse Resp BP Pulse Ox 02/24/20 06:07 36.5 C 66 15 136/74 97 02/23/20 23:55 36.4 C L 61 16 129/72 97 PG Care Time/CCT Total # of Minutes Spent Total Time Spent with Patient: Total time spent is greater than 50% in substance addiction coordinator rdination of care (as documented) at patient's floor/unit and/or counseling patient: Coding Level of Care Code None Diagnoses Status post left knee replacement Z96.652
--- NOTE | 2020-02-24 06:58 | Discharge Summary ---
Date of Service February 24, 2020 Admission HPI Per Admitting Provider Quoc is a pleasant 74-year-old male who has had a right knee replaced in [place] about 7 years ago. He has done well with that. Unfortunately, he is now dealing with severe left knee pain. He has had multiple medical issues since his last knee replacement. He does have prostate cancer, which metastasized to the T3 vertebral body. He has had radiation as well as chemotherapy. He has had lung cancer and had the left lower lobe of his left lung removed. He had a pulmonary embolism secondary to that as well, for which she is on Eliquis. He also had some bradycardia, but he says that he has been improved since the partial lung resection. Unfortunately, he is having trouble ambulating and being active because of his left knee. His knee hurts him all the time. X-rays and clinical examination were diagnostic for advanced osteoarthritis of the left knee. After failing extensive conservative treatment, he has elected to proceed with a left total knee arthroplasty. Principal Diagnosis Left knee replacement Discharge Data Allergies Allergy/AdvReac Type Severity Reaction Status Date / Time Sulfa (Sulfonamide AdvReac Mild INCREASES Verified 02/14/20 13:01 Antibiotics) BODY TEMPERATURE Consultations 02/22/20 13:59 Consult Case Management - Discharge Planning Routine Procedures Performed Operation Date: 02/22/20 11:20 Actual Procedures p Left Total Knee Arthroplasty(Left) - Johan Brady DO Ordered Studies 02/22/20 05:00 US - OR guided needle placemen Routine Hospital Course (1) Status post left knee replacement: On February 22, [address] [facility] and underwent a left knee replaced without complication. He had a spinal anesthetic. Postoperatively he was started back on Eliquis for DVT prophylaxis and transferred to the general orthopedic floors. His hospital course was uneventful. On postop day #1 his H&H was stable and his pain was well controlled. He was able to participate well with physical therapy doing ambul ation and range of motion exercises. On postop day #2 he continued to do well. His pain was controlled. He was seen once again by physical therapy. He was then discharged home. He will follow-up with orthopedics in 2 weeks. Total Time Total Time Spent Total Time Spent (In Minutes): 20 Discharge Plan Discharge Items Patient Disposition: Home - Home Health Services Reason For Visit: Left Knee Degenerative Joint Disease Discharge Diagnosis: Left knee replacement Activity: As commented below Non-emergency contact: Surgeon Call non-emergency contact if: your wound has increased redness and your wound has increased drainage Follow-up/Referrals: Glenn Hall MD [Primary Care Provider] - Diet: Regular Addtl Attending Provider Instructions: Activity and Therapy Recommendations: * If you are using [facility] then therapy will be provided at your home until they feel you have accomplished all of your goals. * If you are using [facility] then Physical Therapy will be provided until they feel you are ready to start Outpatient Physical Therapy. * If you are not using home therapy then Outpatient Physical Therapy should start about 3-5 days from your day of surgery. Therapy will last about 6-10 weeks * It is important not to put a pillow under your knee when you are relaxing or sleeping. It is just as important to make sure you are getting your knee perfectly straight as it is to regain your knee bend. * You were shown a series of exercises in the hospital. Do these exercises three times each day including the exercises you were shown in physical therapy. * Get up and walk several times each day. For the first four weeks, try not to stand or walk for more than one hour at a time. If you do stand or walk for more than one hour, you will not hurt anything, but your leg will likely swell. * As you feel comfortable, you may change from the walker or crutches to a cane and then to independent walking. * Do not use ladders or go on a roof while recovering from knee replacement surgery Medications: * Narcotic You will likely be sent home from the hospital with a prescription for the narcotic pain medication that worked best throughout your stay. * Aspirin Most patients will be required to take Aspirin 81mg twice a day for 6 weeks after surgery. This is obtained [id number] and a prescription is not necessary. * Other medications may be prescribed for specific circumstances. If you have any questions, please call the office at . * Resume previous home medications unless otherwise instructed TEDs/Elastic Stockings: The white elastic stockings help limit swelling and prevent blood clots from forming in your legs.~ The more you wear them, the more they work. Wear them for six weeks. Dressing Care: Leave the Silverlon dressing in place for 7 days. After 7 days you may remove the dressing. If the incision is not draining then you may leave the randell open to air. If there is a little bit of drainage or if the randell are getting stuck on your clothing then cover the incision with a dry dressing. The randell will be removed at your 2 week follow-up appointment. Showering: You may shower with the Silverlon dressing in place. Do not let the shower spray hit the dressing directly. Pat the Silverlon dressing dry. If the dressing becomes wet underneath, then simply remove the dressing. Keep the incision dry until you are 7 days out from the day of surgery. After 7 days you may remove the Silverlon dressing and shower with the randell exposed. Let soapy water run over the randell and pat them dry. Do not scrub or soak the incision. Things To Watch For: * Drainage from the incision site that occurs more than one week after your surgery. * Increased redness at the incision site. * Fever above 102 degrees Fahrenheit. * Unusual chest pain or shortness of breath. * Call [facility] at with any of the above problems Follow-Up Visit: Follow-up with Dr. Brady's PA (Johan Calloway) 2-3 weeks after your day of surgery. He will remove your randell and answer any questions. If you have any additional questions or concerns, Dr Brady is usually in the office at the same time and will be available An appointment was probably scheduled when you signed-up for surgery in the office. If you have any questions call Office Instructions: More detailed instructions as well as Frequently Asked Questions were provided in a folder by our office when you signed-up for surgery. Please review these instructions when you get home. If you have any further questions or concerns, please feel free to call the office at [phone] Pending Studies at Discharge: No Stand-Alone Forms: My [facility] [employer], Smoking Cessation Medications and DC Order Prescriptions: Continued (DME) AeroEclipse II Nebulizer Misc See Rx Instructions .ROUTE .MEDSUPPLY Qty: 1 RF: 0 rosuvastatin [Crestor] 40 mg tablet 20 mg PO HS RF: 0 ipratropium-albuterol 0.5 mg-3 mg(2.5 mg base)/3 mL solution for nebulization 3 ml INH Q8H PRN (Reason: shortness of breath or wheezing) Qty: 180 RF: 5 Spiriva with HandiHaler 18 mcg capsule, w/inhalation device 1 cap INH DAILY Qty: 90 RF: 3 multivitamin with minerals Capsule 1 cap PO HS RF: 0 cholecalciferol (vitamin D3) [Vitamin D3] 1,000 unit Tablet 1,000 unit PO QAM RF: 0 omega 2-atu-thf-fish oil [Fish Oil] 1,000 mg (120 mg-180 mg) Capsule 2,000 mg PO QAM RF: 0 acetaminophen [Tylenol Extra Strength] 500 mg Tablet 1,000 mg PO Q8H PRN (Reason: Fever Or Pain) RF: 0 vitamin [id number]-ipwar acid 500-400 mcg Tablet 1 tab PO QAM RF: 0 vitamin B complex Tablet 1 tab PO QAM RF: 0 ranolazine [Ranexa] 500 mg Tablet Extended Release 12 Hr 500 mg PO DAILY@1200 RF: 0 Eliquis 5 mg Tablet 5 mg PO BID RF: 0 cetirizine [Zyrtec] 10 mg Tablet 5 mg PO BID PRN (Reason: Allergy Symptoms) RF: 0 albuterol sulfate 90 mcg/actuation HFA aerosol inhaler 2 puff INHALATION BID PRN (Reason: sob) RF: 0 Discharge Orders: Discharge Order (Routine); Ordered 02/24/20 Ordered By: Johan Brady Admission Data Admit Date/Time: 02/22/20 13:01 Attending Provider: Johan Brady Admit Provider: Johan Brady Primary Care Provider: Glenn Hall Coding Level of Care Code D/C Day Management <30 mins Diagnoses Status post left knee replacement Z96.652
[2020-02-24] MEDS: UMECLIDINIUM BROMIDE 62.5MCG/BLISTER 7 PUFFS/INHALER INH SCH (07:24)
[2020-02-24] MEDS: APIXABAN 5 MG TABLET PO SCH (07:24)
[2020-02-24] MEDS: DOCUSATE SODIUM 100 MG CAP PO SCH (07:24)
[2020-02-24] MEDS: MULTIVITAMIN TAB PO SCH (07:24)
[2020-02-24] MEDS: GABAPENTIN 300 MG CAP PO SCH (07:24)
== END 2020-02-24 12:23 | disposition home health service (06) ==
LOC: ASU 09:03 → 3E 09:03